=== PATIENT | female | born 1995 | race Caucasian/White ===

== ENCOUNTER 2021-09-13 10:33 | Emergency (ER) | payer BC, SELFPAY ==
[2021-09-13 10:35] VITALS: BP 141/76; PULSE 107; RESP 18; TEMP 36.4; O2SAT 99
[2021-09-13 12:41] VITALS: BP 148/71; PULSE 101; O2SAT 100
--- NOTE | 2021-09-13 14:19 | ED.HA ---
HPI - Headache General Chief Complaint: Headache Stated Complaint: JACOBSON Time Seen by Provider: 09/13/21 13:58 Source: patient Mode of arrival: ambulatory Limitations: no limitations History of Present Illness HPI Narrative: This is a 26 year old female that presents to the ER for migraine headache x 2 days. Reports a pounding headache. Associated with photophobia. Reports she currently has a sinus infection. Does report history of migraines. She has been taking Excedrin Migraine with little relief. Denies fever, vision changes, vomiting, numbness, or weakness. Related Data Allergies Allergy/AdvReac Type Severity Reaction Status Date / Time No Known Allergies Allergy Unverified 10/10/18 17:34 Review of Systems Review of Systems: CONSTITUTIONAL: Denies fever EYES: Denies visual changes GASTROINTESTINAL: Reports nausea. Denies vomiting NEUROLOGIC: Reports headache. Denies numbness, or weakness. All systems reviewed & are unremarkable except as noted in HPI and below PMFSH Past Medical History Medical History (Updated 09/13/21 @ 15:47 by Rae Ahuja PA-C) No active medical problems Social History Social History (Updated 09/13/21 @ 14:21 by Rae Ahuja PA-C) Smoking status: Current every day smoker Exam Narrative: GENERAL: Well-appearing, well-nourished, and in no acute distress. HEAD: Normocephalic, atraumatic. EYES: PERRLA and EOMI. ENT: Turbinates swollen and pale. Mucous membranes moist. Oropharynx without tonsillar hypertrophy exudate or other lesions. Bilateral TMs pearly salgado non-bulging NECK: Supple. No adenopathy or masses. CHEST: Clear to auscultation. No respiratory distress. No wheezes rales or rhonchi HEART: Regular rate and rhythm. No murmur heard. Normal peripheral pulses. EXTREMITIES: Normal range of motion. No edema. SKIN: Warm, dry, no rash. NEURO: No focal deficits. Alert and oriented x3. Cranial nerves II through XII grossly intact PSYCH: Normal mood and affect Course Vital Signs Vital signs: Vital Signs Temperature 97.5 F L 09/13/21 10:35 Pulse Rate 107 H 09/13/21 10:35 Respiratory Rate 18 09/13/21 10:35 Blood Pressure 141/76 H 09/13/21 10:35 Pulse Oximetry 99 09/13/21 10:35 Temperature 97.5 F L 09/13/21 10:35 Pulse Rate 101 H 09/13/21 12:41 Respiratory Rate 18 09/13/21 10:35 Blood Pressure 148/71 H 09/13/21 12:41 Pulse Oximetry 100 09/13/21 12:41 MDM - Headache MDM Narrative Medical decision making narrative: Patient presents the emergency department for migraine headache present over the last couple of days. Does report history of migraines. She is afebrile and nontoxic-appearing. She is neurologically intact. Reports relief with migraine cocktail. Resting in the room comfortably. Patient is stable and felt appropriate for further outpatient evaluation. Instructed to follow-up with her primary doctor. She was given warnings to return to the ER Critical Care Time Critical Care Time Critical Care Time: No Discharge Plan Discharge Clinical Impression: Migraine Qualifiers: Migraine type: unspecified Status migrainosus presence: without status migrainosus Intractability: not intractable Qualified Code(s): G43.909 - Migraine, unspecified, not intractable, without status migrainosus Patient Disposition: Home, Self-Care Condition: Stable Instructions: Migraine Headache (ED) Additional Instructions: Return to the emergency department if you experience fever, stiff neck, vomiting, sudden onset numbness or weakness, or any other symptoms that are concerning to you Rest. Remain well-hydrated. Tylenol or ibuprofen as needed for discomfort Follow-up with primary care doctor Follow-up/Referrals: Spencer Frankel MD [Physician] - 3 Days PHYSICIAN,[employer]OLLER [Primary Care Provider] -
[2021-09-13] MEDS: SODIUM CHLORIDE 0.9% IV 1,000 ML 999 ML IV CONT (14:36)
[2021-09-13] MEDS: diphenhydrAMINE HCl INJ 50 MG/ML VIAL 25 MG IV PUSH (14:38)
[2021-09-13] MEDS: METOCLOPRAMIDE HCL INJ 10 MG/2 ML VIAL IV PUSH (14:39)
== END 2021-09-13 15:59 | disposition home or self-care (01) ==
PROVIDERS: Emergency Provider Emergency Medicine
DX: G43.909 Migraine, unspecified, not intractable, without status migrainosus (principal); F17.200 Nicotine dependence, unspecified, uncomplicated
CPT/HCPCS: 96365; 96375; 99284; J0131; J1200; J2765; J7030

== ENCOUNTER 2021-11-26 09:58 | Emergency (ER) | payer BC, SELFPAY ==
[2021-11-26 10:06] VITALS: BP 146/78; PULSE 91; RESP 16; TEMP 36.2; O2SAT 97
[2021-11-26] MEDS: LACTATED RINGERS 1,000 ML 999 ML IV CONT (11:01)
[2021-11-26 11:09] LABS: Basophils Percent Auto 0.4 % (0.2-1.2); Eosinophils Percent Auto 0.2 % (0-4.4); Hematocrit 36.6 % (37.0-47.0); Hemoglobin 12.5 g/dL (12.0-15.0); Immature Granulocyte Absolute 0.03 K/mm3 (0.00-0.031); Immature Granulocyte Percent A 0.4 % (0-0.5); Lymphocytes Absolute Auto 2.41 K/mm3 (0.9-3.2); Lymphocytes Percent Auto 28.6 % (18.3-44.2); Mean Corpuscular HGB Conc 34.2 g/dl (32-36); Mean Corpuscular Hemoglobin 31.9 pg (26-34); Mean Corpuscular Volume 93.4 fl (80-100); Monocytes Absolute Auto 0.5 K/mm3 (0.1-0.6); Monocytes Percent Auto 6.4 % (2.6-8.5); Neutrophils Absolute Auto 5.4 K/mm3 (1.3-6.7); Platelet Count Result 221 k/mm3 (150-375); Red Blood Count 3.92 M/mm3 (4.2-5.4); Red Cell Distribution Width 12.5 % (11.5-14.5); White Blood Count 8.4 K/mm3 (4.5-10.0)
--- NOTE | 2021-11-26 11:18 | PC.NURSE ---
patient unable to give urine sample at this time, declines straight cath. patient will attempt again later.
[2021-11-26 11:23] LABS: Alanine Aminotransferase 19 U/L (4-35); Albumin Level 4.4 g/dL (3.5-5.1); Alkaline Phosphatase 63 U/L (38-126); Anion Gap 10 mmol/L (8-16); Aspartate Amino Transferase 38 U/L (14-36); Bilirubin,Total 0.9 mg/dL (0.2-1.3); Blood Urea Nitrogen 14 mg/dL (7-17); Carbon Dioxide 23 mmol/L (22-30); Chloride 105 mmol/L (98-107); Estimated CRCL calculation 129 ml/min; Estimated Glomerular Filt Rate > 60; Glucose 95 mg/dL (65-110); Potassium 4.5 mmol/L (3.4-5.0); Sodium 138 mmol/L (137-145)
[2021-11-26 12:53] LABS: Add Urine Microscopic? YES; Appearance Urine Clear (Clear); Bilirubin Urine Negative (Negative); Blood Urine 3+ (Negative); Color Urine Amber (Yellow); Glucose Urine UA Negative (Negative); Ketones Urine 1+ mg/dL (Negative); Leukocyte Esterase Ur Negative LEU/UL (Negative); Mucus Urine Heavy /lpf; Nitrate Urine Negative (Negative); Protein Urine 1+ mg/dL (Negative); RBC Urine >75 /hpf (0-2); Squamous Epithelial Cell Urine Few /hpf (Few)
[2021-11-26 12:54] LABS: Specific Grav Ur 1.031 (1.001-1.035)
--- NOTE | 2021-11-26 13:21 | ED.FEMALEGU ---
HPI - Female Genitourinary General Chief complaint: Vaginal Bleeding <Gem Freedman APRN - Last Filed: 11/26/21 13:59> Stated complaint: vaginal bleeding <Gem Freedman APRN - Last Filed: 11/26/21 13:59> Time Seen by Provider: 11/26/21 10:27 <Gem Freedman APRN - Last Filed: 11/26/21 13:59> Source: patient <Gem Freedman APRN - Last Filed: 11/26/21 13:59> Mode of arrival: ambulatory <Gem Freedman APRN - Last Filed: 11/26/21 13:59> History of Present Illness HPI Narrative: 26 year old female presents today with complaints of vaginal bleeding heavy with dizziness. Patient states she had her normal menses 2 weeks ago. She started bleeding 3 days ago and has noted increased bleeding with clots that started last night. Patient states she is soaking through more than 1 pad an hour. She got concerned when she was dizzy. She has Nexplanon implanted but says it is due to be changed soon. States she is not but does have unprotected sex. <Gem Freedman APRN - Last Filed: 11/26/21 13:59> Sexual activity: Yes (same sexual partner for 6 years. ) and New Sexual Partners <Gem Freedman APRN - Last Filed: 11/26/21 13:59> Patient : No <Gem Freedman APRN - Last Filed: 11/26/21 13:59> Date of Last Menstrual Period: 11/12/21 <Gem Freedman APRN - Last Filed: 11/26/21 13:59> Related Data Allergies/Adverse reactions: Allergies Allergy/AdvReac Type Severity Reaction Status Date / Time No Known Allergies Allergy Verified 11/26/21 10:10 <Gem Freedman APRN - Last Filed: 11/26/21 13:59> Review of Systems Constitutional: Constitutional: Reports no additional constitutional complaints, Denies chills and Denies fatigue <Gem Freedman APRN - Last Filed: 11/26/21 13:59> Eyes: Eyes: Reports no additional eye complaints <Gem Freedman APRN - Last Filed: 02/18/22 13:59> Cardiovascular: Cardiovascular: Reports no additional cardiovascular complaints and Denies chest pain <Gem Freedman MANAGER OF INTERNAL AUDIT - Last Filed: 11/26/21 13:59> Respiratory: Respiratory: Reports no additional respiratory complaints, Denies cough and Denies dyspnea <Gem Freedman MANAGER OF INTERNAL AUDIT - Last Filed: 11/26/21 13:59> Genitourinary: Genitourinary: Reports as per HPI and Reports abnormal vaginal bleeding <Gem Freedman MANAGER OF INTERNAL AUDIT Last Filed: 11/26/21 13:59> Neurologic: Reports system reviewed and no additional complaints, except as documented <Gem Freedman MANAGER OF INTERNAL AUDIT - Last Filed: 11/26/21 13:59> Hematologic/Lymphatic: Hematologic/Lymphatic: Reports no additional hematologic/lymphatic complaints <Gem Freedman MANAGER OF INTERNAL AUDIT - Last Filed: 11/26/21 13:59> PMFSH Past Medical History Medical History: Medical History No active medical problems <Gem Freedman MANAGER OF INTERNAL AUDIT - Last Filed: 11/26/21 13:59> Social History Social History: Social History Smoking status: Current every day smoker <Gem Freedman - Last Filed: 11/26/21 13:59> Exam Narrative: GENERAL: Well-appearing, well-nourished, and in no acute distress. HEAD: Normocephalic, atraumatic. EYES: PERRLA and EOMI. ENT: Nares clear, no rhinorrhea or epistaxis. Mucous membranes moist. Oropharynx without tonsillar hypertrophy exudate or other lesions. Bilateral TMs pearly salgado nonbulging NECK: Supple. No adenopathy or masses. No carotid bruits or JVD CHEST: Clear to auscultation. No respiratory distress. No wheezes rales or rhonchi HEART: Regular rate and rhythm. No murmur heard. Normal peripheral pulses. ABDOMEN: Soft, nontender, nondistended, normal active bowel sounds. EXTREMITIES: Normal range of motion. No edema. SKIN: Warm, dry, no rash. NEURO: No focal deficits. Alert and oriented x3. PSYCH: Normal mood and affect. <Gem Freedman, MANAGER OF INTERNAL AUDIT - Last Filed: 11/26/21 13:59> Eyes: Conjunctivae: conjunctivae norm
[2021-11-26 13:54] VITALS: BP 138/75; PULSE 87; RESP 18; O2SAT 99
== END 2021-11-26 13:55 | disposition home or self-care (01) ==
PROVIDERS: Emergency Provider Nurse Practitioner Family
DX: N93.8 Other specified abnormal uterine and vaginal bleeding (principal); F17.200 Nicotine dependence, unspecified, uncomplicated
CPT/HCPCS: 36415; 80053; 81001; 81025; 85025; 86850; 86900; 86901; 96360; 99284; J7120

== ENCOUNTER 2022-04-12 10:25 | Emergency (ER) | payer BC, SELFPAY ==
--- NOTE | ~2022-04-12 | XR_ITS ---
EXAMINATION: XR hip LT min 2V INDICATION: Left hip pain TECHNIQUE: Two views of the left hip are obtained. COMPARISON: None available FINDINGS: Bone alignment is normal. There is no fracture. The soft tissues are unremarkable. IMPRESSION: 1. Unremarkable left hip radiographs. Reviewed, dictated and finalized at location B.
--- NOTE | 2022-04-12 10:44 | PC.NURSE ---
Radiology taking pt. unable to triage
[2022-04-12 10:58] VITALS: BP 125/67; PULSE 74; RESP 20; TEMP 36.7; O2SAT 99
--- NOTE | 2022-04-12 11:20 | ED.LOWEXIN ---
HPI - Extremity Injury (Lower) General Chief Complaint: Extremity Injury, Lower Stated Complaint: left hip injury Time Seen by Provider: 04/12/22 10:53 History of Present Illness HPI Narrative: 26-year-old female presents emergency room for evaluation of left hip pain. Patient states 3 days ago she was wrestling with her boyfriend. Reports she heard a pop at the time of the injury. The following day she began complaining of left gluteal/hip pain that was worse with ambulation and when she brought her knee up to her chest. Patient has been taking Tylenol and ibuprofen with no relief of symptoms. Related Data Allergies Allergy/AdvReac Type Severity Reaction Status Date / Time No Known Allergies Allergy Verified 11/26/21 10:10 Review of Systems Review of Systems: CONSTITUTIONAL: Denies fever, chills, or sweats. EYES: Denies visual changes, redness, or discharge. ENT: Denies rhinorrhea, congestion, sore throat, or otalgia. CARDIOVASCULAR: Denies chest pain, palpitations, or edema. RESPIRATORY: Denies cough or dyspnea. GASTROINTESTINAL: Denies abdominal pain, nausea, vomiting, or diarrhea. GENITOURINARY: Denies dysuria or hematuria. SKIN: Denies rash or itching. MUSCULOSKELETAL: Reports left hip/gluteal pain NEUROLOGIC: Denies headache, numbness, dizziness, or weakness. PSYCHIATRIC: Denies anxiety or depression. PMFSH Past Medical History Medical History No active medical problems Social History Social History Smoking status: Current every day smoker Exam Narrative: GENERAL: Well-appearing, well-nourished, no physical limitations, and in no acute distress. HEAD: Normocephalic, atraumatic. EYES: Conjunctivae normal, PERRLA and EOMI. CHEST: Clear to auscultation. No respiratory distress. No wheezes rales or rhonchi. No tenderness. HEART: Regular rate and rhythm. No murmur heard. Normal peripheral pulses. BACK: No CVA tenderness; No midline cervical/thoracic/lumbar tenderness, step-offs, bony abnormality; FROM EXTREMITIES: Normal range of motion. No edema. No clubbing or cyanosis, tenderness to the left gluteal muscle SKIN: Warm, dry, no rash. No noted wounds NEURO: No focal deficits. Alert and oriented x3. MAEW. CN's II-XI intact bilaterally, normal gait PSYCH: Cooperative. Normal mood and affect. Course Vital Signs Vital signs: Vital Signs Temperature 36.7 C 04/12/22 10:58 Pulse Rate 74 04/12/22 10:58 Respiratory Rate 20 04/12/22 10:58 Blood Pressure 125/67 04/12/22 10:58 Pulse Oximetry 99 04/12/22 10:58 Oxygen Delivery Room Air 04/12/22 10:58 Temperature 36.7 C 04/12/22 10:58 Pulse Rate 74 04/12/22 10:58 Respiratory Rate 20 04/12/22 10:58 Blood Pressure 125/67 04/12/22 10:58 Pulse Oximetry 99 04/12/22 10:58 Oxygen Delivery Room Air 04/12/22 10:58 MDM - Extremity Injury (Lower) Lab Data Labs: UCG Bedside Result Negative Reference Range: Negative Imaging Data Radiologist's impression: Impressions Hip X-Ray 04/12/22 10:55 IMPRESSION: 1. Unremarkable left hip radiographs. Discharge Plan Discharge Clinical Impression: Contusion of hip, left Patient Disposition: Home, Self-Care Condition: Stable Instructions: Antibiotic Form Prescriptions: New naproxen 500 mg tablet 500 mg PO BID Qty: 20 0RF No Action ibuprofen 600 mg tablet 600 mg PO Q6H PRN (Reason: pain) Qty: 30 0RF Follow-up/Referrals: PHYSICIAN,G[employer] SUPERVISOR [Primary Care Provider] - Stand Alone Forms: Work/School Release IP Time of Disposition: 11:23
== END 2022-04-12 11:36 | disposition home or self-care (01) ==
PROVIDERS: Emergency Provider Nurse Practitioner Family
DX: S70.02XA Contusion of left hip, initial encounter (principal); F17.200 Nicotine dependence, unspecified, uncomplicated; X50.9XXA Other and unspecified overexertion or strenuous movements or postures, initial encounter; Y93.83 Activity, rough housing and horseplay
CPT/HCPCS: 73502; 81025; 99283

== ENCOUNTER 2022-09-06 12:47 | Emergency (ER) | payer BC, SELFPAY ==
--- NOTE | 2022-09-06 12:57 | PC.NURSE ---
Walk out before triage at 1251
== END 2022-09-06 12:51 | disposition left against medical advice (07) ==
DX: Z53.21 Procedure and treatment not carried out due to patient leaving prior to being seen by health care provider (principal)
CPT/HCPCS: 99199

== ENCOUNTER 2023-02-25 18:53 | Emergency (ER) | payer OTHER, BC, SELFPAY ==
[2023-02-25 19:10] VITALS: BP 136/86; PULSE 84; RESP 18; TEMP 36.7; O2SAT 99
--- NOTE | 2023-02-25 20:47 | ED.BACK ---
HPI - Back Pain/Injury General Chief Complaint: Back Pain/Injury Stated Complaint: lower and mid back pain Time Seen by Provider: 02/25/23 19:58 Source: patient Mode of arrival: ambulatory Limitations: no limitations History of Present Illness HPI Narrative: This is a 27-year-old female presents to the ED with chief complaint of acute on chronic low back pain x1 day. States she has had back pain for about a year. She has history of herniated disc. Patient states that she is having severely worse pain today. She states it is worse in the right lower back. She states it is causing her trouble with walking. She has also had paresthesias to the bilateral lower legs, worse on the right foot. Reports shocklike pains that radiate. Patient states that earlier today she had an episode of incontinence. She was unaware that she had to urinate. Denies any bowel incontinence. Denies saddle anesthesia. Denies foot drop. Denies fevers, chills or any further site of pain. Related Data Allergies Allergy/AdvReac Type Severity Reaction Status Date / Time gabapentin Allergy Rash Verified 02/25/23 18:55 Review of Systems Review of Systems: CONSTITUTIONAL: Denies fever, chills, or sweats. EYES: Denies visual changes, redness, or discharge. ENT: Denies rhinorrhea, congestion, sore throat, or otalgia. CARDIOVASCULAR: Denies chest pain, palpitations, or edema. RESPIRATORY: Denies cough or dyspnea. GASTROINTESTINAL: Denies abdominal pain, nausea, vomiting, or diarrhea. GENITOURINARY: See HPI SKIN: Denies rash or itching. MUSCULOSKELETAL: See HPI NEUROLOGIC: Denies headache, numbness, dizziness, or weakness. PSYCHIATRIC: Denies anxiety or depression. [facility] Past Medical History Medical History No active medical problems Social History Social History Smoking status: Current every day smoker Exam Narrative: GENERAL: Well-appearing, well-nourished, and in no acute distress. HEAD: Normocephalic, atraumatic. EYES: PERRLA and EOMI. ENT: Nares clear, no rhinorrhea or epistaxis. Mucous membranes moist. Oropharynx without tonsillar hypertrophy exudate or other lesions. NECK: Supple. No adenopathy or masses. CHEST: No respiratory distress. Clear to auscultation. No wheezes rales or rhonchi HEART: Regular rate and rhythm. No murmur heard. Normal peripheral pulses. ABDOMEN: Soft, nontender, nondistended, normal active bowel sounds. MSK: Straight leg raise positive on the right. Equivocal on the left. Right paraspinal lumbar tenderness present. Right SI tenderness present. She is ambulatory. No midline pain. Normal range of motion. No edema. SKIN: Warm, dry, no rash. NEURO: Alert and oriented x3. Reports sensory deficit on the right foot. No saddle anesthesia present. 5 out of 5 strength with plantarflexion, dorsiflexion, EHL strength bilaterally. Patellar reflexes 2+ bilaterally. PSYCH: Normal mood and affect. Rectal exam performed with female RN urban renewal manager present: Good anal tone. Anal present Course Course Emergency Course: Pt is able to ambulate to the restroom and back without difficulty. No foot drop observed. She states that she was able to urinate without difficulty. Reevaluation 2256: Feeling much better and wants to go home Vital Signs Vital signs: Vital Signs Temperature 98.0 F 02/25/23 19:10 Pulse Rate 84 02/25/23 19:10 Respiratory Rate 18 02/25/23 19:10 Blood Pressure 136/86 02/25/23 19:10 Pulse Oximetry 99 02/25/23 19:10 Oxygen Delivery Room Air 02/25/23 19:10 Temperature 98.0 F 02/25/23 19:10 Pulse Rate 84 02/25/23 19:10 Respiratory Rate 18 02/25/23 19:10 Blood Pressure 136/86 02/25/23 19:10 Pulse Oximetry 99 02/25/23 19:10 Oxygen Delivery Room Air 02/25/23 19:10 MDM - Back Pain/Injury MDM Narrative Medical decision making narrative:
[2023-02-25] MEDS: MORPHINE SULFATE (*CRX) 4 MG/ML INJ IV PUSH (21:42)
[2023-02-25 21:43] LABS: Appearance Urine Cloudy (Clear); Bacteria Urine None Seen /hpf; Bilirubin Urine Negative (Negative); Blood Urine Negative (Negative); Color Urine Yellow (Yellow); Glucose Urine UA Trace mg/dL (Negative); Ketones Urine Trace mg/dL (Negative); Leukocyte Esterase Ur Negative LEU/UL (Negative); Nitrate Urine Negative (Negative); Non Pathogenic Casts 0-2; Protein Urine Negative (Negative); RBC Urine 0-2 /hpf (0-2); Specific Grav Ur 1.032 (1.001-1.035); Squamous Epithelial Cell Urine Occasional /hpf (Few); Urobilinogen Urine 0.2 mg/dL (<2.0); WBC Urine 0-5 /hpf
[2023-02-25 21:48] LABS: Add Urine Microscopic? YES
== END 2023-02-25 23:32 | disposition home or self-care (01) ==
PROVIDERS: Emergency Provider Physician Assistant
DX: M54.16 Radiculopathy, lumbar region (principal); F17.200 Nicotine dependence, unspecified, uncomplicated
CPT/HCPCS: 81001; 96374; 99284; J2270

== ENCOUNTER 2023-03-19 10:45 | Emergency (ER) | payer OTHER, BC, SELFPAY ==
[2023-03-19 10:49] VITALS: BP 153/64; PULSE 90; RESP 16; TEMP 36.5; O2SAT 100
[2023-03-19] MEDS: KETOROLAC (*BKC) 60 MG/2 ML VIAL IM (11:30)
[2023-03-19] MEDS: CYCLOBENZAPRINE HCL 10 MG TABLET PO (11:30)
--- NOTE | 2023-03-19 12:31 | ED.BACK ---
HPI - Back Pain/Injury General Chief Complaint: Back Pain/Injury Stated Complaint: back pain/leg pain Time Seen by Provider: 03/19/23 11:06 History of Present Illness HPI Narrative: Patient is a 27-year-old female who presents ER with back pain. Patient reports she has history of low back pain that is been ongoing for the last year. She has been to [facility] and had multiple x-rays and MRI. Last MRI was August 2022. She reports she has several bulging disc and also has a lot of degenerative changes to her spine. She is referred to neurosurgery but does not want to have surgery so she is trying to see an orthopedic surgeon. She has no fevers or chills or sweats. 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 She has no new traumatic injury. Reports that pain has been referring to her legs and groin mainly on the right side somewhat on the left. No saddle anesthesia. No difficulty with urination/defecation. Related Data Allergies Allergy/AdvReac Type Severity Reaction Status Date / Time gabapentin Allergy Rash Verified 02/25/23 18:55 Review of Systems Review of Systems: All systems reviewed & are unremarkable except as noted in HPI and below Constitutional: Constitutional: Denies chills and Denies fever(s) Musculoskeletal: Musculoskeletal: Reports back pain, Denies arthralgias and Denies joint swelling Integumentary/Breasts: Skin/Breast: Denies erythema, Denies rash and Denies skin ulcer Neurologic: Denies headache(s), Denies focal weakness and Denies numbness PMFSH Past Medical History Medical History (Updated 03/19/23 @ 12:37 by August Irving MD) No active medical problems Surgical History Surgical History (Updated 03/19/23 @ 12:33 by August Irving MD) No pertinent past surgical history Social History Social History Smoking status: Current every day smoker Exam Narrative: GENERAL: Well-appearing, well-nourished, and in no acute distress. HEAD: Normocephalic, atraumatic. ENT: Mucous membranes moist. CHEST: Clear to auscultation. No respiratory distress. HEART: Regular rate and rhythm. Normal peripheral pulses. Back: No midline tenderness to the T/L-spine there is tenderness to the paraspinal musculature in the SI region bilaterally while forward down into the buttock. EXTREMITIES: Normal range of motion. No edema. NEURO: Alert and oriented x3. PSYCH: Normal mood and affect. Course Course Emergency Course: Patient in bed sleeping and feels improved with Toradol and Flexeril. She does report overall weakness related to the Flexeril and does not wish to have that prescribed for home. She does report success with treating her pain when using steroids at home and so she will be prescribed a Medrol Dosepak. Vital Signs Vital signs: Vital Signs Temperature 97.7 F 03/19/23 10:49 Pulse Rate 90 03/19/23 10:49 Respiratory Rate 16 03/19/23 10:49 Blood Pressure 153/64 H 03/19/23 10:49 Pulse Oximetry 100 03/19/23 10:49 Oxygen Delivery Room Air 03/19/23 10:49 Temperature 97.7 F 03/19/23 10:49 Pulse Rate 90 03/19/23 10:49 Respiratory Rate 16 03/19/23 10:49 Blood Pressure 153/64 H 03/19/23 10:49 Pulse Oximetry 100 03/19/23 10:49 Oxygen Delivery Room Air 03/19/23 10:49 Discharge Plan Discharge Clinical Impression: Sciatica Patient Disposition: Home, Self-Care Condition: Stable Instructions: Sciatica (ED) Additional Instructions: Return to the ER if you have increased pain in your back, you develop lower extremity weakness/numbness/paralysis, you have numbness or tingling in your private parts, or you are unable to control your ability to urinate/stool. Prescriptions: New methylprednisolone [Medrol (Devaughn)] 4 mg tablets,dose pack See Rx Instructions .ROUTE .COMPLEX Qty: 21 0RF Rx Instructions: orally per package directions No Action ibuprofen 600 mg tablet
== END 2023-03-19 12:48 | disposition home or self-care (01) ==
PROVIDERS: Emergency Provider Emergency Medicine
DX: M54.42 Lumbago with sciatica, left side (principal); M54.41 Lumbago with sciatica, right side; F17.200 Nicotine dependence, unspecified, uncomplicated
CPT/HCPCS: 96372; 99283; A9270; J1885

== ENCOUNTER 2023-03-23 12:18 | Outpatient (CLI) | payer OTHER, SELFPAY ==
--- NOTE | ~2023-03-23 | XR_ITS ---
XR lumbar spine 2-3V 03/23/2023 12:48 Indication: Low back pain Procedure: 3 views lumbar spine Comparison: No prior studies for comparison. Findings: Vertebral body heights are maintained. No fracture, subluxation or dislocation. There is mi ld degenerative spondylosis of the lower thoracic spine. There is mild degenerative disc disease at T 12-L1 and L1-2. No evidence for spondylolisthesis. Pedicles are intact. Normal alignment. There is a n IUD in the pelvis. Impression: 1: Mild lumbar spondylosis. Reviewed, dictated and finalized at location [] Impression: 1: Mild lumbar spondylosis.
[2023-03-23 13:29] LABS: Hematocrit 40.1 % (37.0-47.0); Hemoglobin 13.4 g/dL (12.0-15.0); Mean Corpuscular HGB Conc 33.4 g/dl (32-36); Mean Corpuscular Hemoglobin 31.2 pg (26-34); Mean Corpuscular Volume 93.5 fl (80-100); Mean Platelet Volume 10.1 fl (7.4-10.4); Platelet Count Result 242 k/mm3 (150-375); Red Blood Count 4.29 M/mm3 (4.2-5.4); Red Cell Distribution Width 11.9 % (11.5-14.5)
[2023-03-23 13:38] LABS: Appearance Urine Clear (Clear); Bacteria Urine None Seen /hpf; Bilirubin Urine Negative (Negative); Blood Urine Negative (Negative); Color Urine Yellow (Yellow); Glucose Urine UA Negative (Negative); Ketones Urine Negative (Negative); Leukocyte Esterase Ur Trace LEU/UL (NEGATIVE); Nitrate Urine Negative (Negative); Non Pathogenic Casts 0-2; Protein Urine Negative (Negative); RBC Urine 0-2 /hpf (0-2); Specific Grav Ur 1.013 (1.001-1.035); Squamous Epithelial Cell Urine Occasional /hpf (Few); Urobilinogen Urine 0.2 mg/dL (<2.0); WBC Urine 0-5 /hpf (0-3); pH Urine 7.5 (5.0-9.0)
[2023-03-23 13:42] LABS: Alanine Aminotransferase 21 U/L (6-35); Albumin Level 4.6 g/dL (3.5-5.1); Alkaline Phosphatase 65 U/L (38-126); Anion Gap 5 mmol/L (8-16); Aspartate Amino Transferase 22 U/L (14-36); Bilirubin,Total 0.5 mg/dL (0.2-1.3); Blood Urea Nitrogen 12 mg/dL (7-17); Carbon Dioxide 28 mmol/L (22-30); Chloride 105 mmol/L (98-107); Estimated Glomerular Filt Rate > 60; Glucose 90 mg/dL (65-110); Potassium 3.9 mmol/L (3.4-5.0); Sodium 138 mmol/L (137-145)
[2023-03-23 13:46] LABS: Add Urine Microscopic? YES
[2023-03-23 14:35] LABS: Erythrocyte Sedimentation Rate 25 mm/hr (0-20)
[2023-03-23 23:56] LABS: Rheumatoid Factor < 12.0 IU/ML (<12)
== END 2023-03-23 12:19 | disposition home or self-care (01) ==
PROVIDERS: PCP Emergency Medicine; Visit Provider Emergency Medicine
DX: Z00.00 Encounter for general adult medical examination without abnormal findings (principal); F41.9 Anxiety disorder, unspecified; E32.9 Disease of thymus, unspecified; M47.896 Other spondylosis, lumbar region
CPT/HCPCS: 36415; 72100; 80053; 81001; 85027; 85652; 86038; 86430

== ENCOUNTER 2023-04-18 13:28 | Outpatient (CLI) | payer OTHER, SELFPAY ==
[2023-04-18 14:34] LABS: Cholesterol 153 mg/dL (0-200); HDL Direct 41 mg/dL; Triglycerides 72 mg/dL (<150)
[2023-04-18 14:37] LABS: Creatinine Urine 328.2 mg/dL
[2023-04-18 14:44] LABS: Appearance Urine Turbid (Clear); Bacteria Urine 3+ /hpf; Bilirubin Urine Negative (Negative); Blood Urine 2+ (Negative); Color Urine Dark Yellow (Yellow); Glucose Urine UA Negative (Negative); Ketones Urine Negative (Negative); Leukocyte Esterase Ur 2+ LEU/UL (NEGATIVE); Mucus Urine Present /lpf; Nitrate Urine Negative (Negative); Non Pathogenic Casts 0-2; Protein Urine 2+ mg/dL (Negative); Specific Grav Ur 1.025 (1.001-1.035); Squamous Epithelial Cell Urine Many /hpf (Few); WBC Urine 51-100 /hpf (0-3)
[2023-04-18 14:45] LABS: LDL Cholesterol Direct 80 mg/dL
[2023-04-18 14:46] LABS: Beta HCG Quantitative < 2.39 mIU/ML
[2023-04-18 14:58] LABS: Add Urine Microscopic? YES
[2023-04-18 15:14] LABS: MALB Creatinine Ratio 89.9 mg/g (0-30)
[2023-04-18 15:22] LABS: Free T4 Free Thyroxine 0.97 ng/mL (0.78-2.19); Hemoglobin A1C 4.9 % (<5.7)
== END 2023-04-18 13:29 | disposition home or self-care (01) ==
PROVIDERS: PCP Emergency Medicine; Visit Provider Emergency Medicine
DX: M41.9 Scoliosis, unspecified (principal); M54.50 Low back pain, unspecified; F32.9 Major depressive disorder, single episode, unspecified; M51.36 Other intervertebral disc degeneration, lumbar region; E66.9 Obesity, unspecified
CPT/HCPCS: 36415; 80061; 81001; 82043; 83036; 84439; 84443; 84702; 87086; 87088

== ENCOUNTER 2024-03-20 12:39 | Emergency (ER) | payer OTHER, SELFPAY ==
[2024-03-20 12:41] VITALS: BP 114/78; PULSE 101; RESP 22; TEMP 36.6; O2SAT 98
--- NOTE | 2024-03-20 13:02 | ED.BACK ---
HPI - Back Pain/Injury General Chief Complaint: Back Pain/Injury Stated Complaint: lower back pain Time Seen by Provider: 03/20/24 12:51 Related Data Allergies Allergy/AdvReac Type Severity Reaction Status Date / Time gabapentin Allergy Rash Verified 03/20/24 12:40 [facility] Past Medical History Medical History (Updated 03/20/23 @ 00:00 by Gris Mcbride) No active medical problems Surgical History Surgical History (Updated 03/19/23 @ 12:33 by August Irving MD) No pertinent past surgical history Social History Social History Smoking status: Current every day smoker Course Course Emergency Course: Chart review performed. Patient here with lower back pain x4 days. History of degenerative disk disease per nursing note. Triage vitals show tachycardia, otherwise grossly normal. Multiple prior visits for lumbar back pain in the past in our system. Vital Signs Vital signs: Vital Signs Temperature 97.8 F 03/20/24 12:41 Pulse Rate 101 H 03/20/24 12:41 Respiratory Rate 22 H 03/20/24 12:41 Blood Pressure 114/78 03/20/24 12:41 Pulse Oximetry 98 03/20/24 12:41 Oxygen Delivery Room Air 03/20/24 12:41 Temperature 97.8 F 03/20/24 12:41 Pulse Rate 101 H 03/20/24 12:41 Respiratory Rate 22 H 03/20/24 12:41 Blood Pressure 114/78 03/20/24 12:41 Pulse Oximetry 98 03/20/24 12:41 Oxygen Delivery Room Air 03/20/24 12:41 Discharge Plan Discharge Prescriptions: No Action ibuprofen 600 mg tablet 600 mg PO Q6H PRN (Reason: pain) Qty: 30 0RF naproxen 500 mg tablet 500 mg PO BID Qty: 20 0RF methylprednisolone [Medrol (Devaughn)] 4 mg tablets,dose pack See Rx Instructions .ROUTE .COMPLEX Qty: 21 0RF Rx Instructions: orally per package directions Follow-up/Referrals: Damion Begum MD [Primary Care Provider] -
[2024-03-20] MEDS: CYCLOBENZAPRINE HCL 10 MG TABLET PO (13:48)
[2024-03-20] MEDS: KETOROLAC (*BKC) 60 MG/2 ML VIAL IM (13:48)
--- NOTE | 2024-03-20 14:25 | ED.GENADULT ---
HPI - General Adult General Chief complaint: Back Pain/Injury Stated complaint: lower back pain Time Seen by Provider: 03/20/24 12:51 History of Present Illness HPI narrative: Patient is a 28-year-old female who presents ER with low back pain. Worsening over last couple days. Has history of degenerative disc disease and sees an orthopedic spine physician. She used to get steroid injections. Symptoms worsened after swimming in a [place]. No other known trauma. Radiates down her right leg. No saddle anesthesia. No difficulty with urination / defecation. Related Data Allergies Allergy/AdvReac Type Severity Reaction Status Date / Time gabapentin Allergy Rash Verified 03/20/24 12:40 Review of Systems Constitutional: Constitutional: Reports no additional constitutional complaints Cardiovascular: Cardiovascular: Reports no additional cardiovascular complaints Respiratory: Respiratory: Reports no additional respiratory complaints Musculoskeletal: Musculoskeletal: Reports back pain, Denies arthralgias, Denies joint swelling and Denies muscle cramps Neurologic: Reports system reviewed and no additional complaints, except as documented PMFSH Past Medical History Medical History (Updated 03/20/24 @ 14:45 by August Irving MD) Degenerative disc disease No active medical problems Surgical History Surgical History (Updated 03/19/23 @ 12:33 by August Irving MD) No pertinent past surgical history Social History Social History Smoking status: Current every day smoker Exam Narrative: GENERAL: Well-appearing, well-nourished, and in no acute distress. HEAD: Normocephalic, atraumatic. ENT: Mucous membranes moist. BACK: NO midline tenderness of the T/L-spine. Mild right SI region tenderness. EXTREMITIES: Normal range of motion. No edema. SKIN: Warm, dry, no rash. NEURO: Alert and oriented x3. PSYCH: Normal mood and affect. Course Course Emergency Course: patient resting comfortably. Discussed diagnosis and treatment plan. Patient verbalized understanding. Discharge home. Patient has follow-up with her doctor on 04/09/2024. Vital Signs Vital signs: Vital Signs Temperature 97.8 F 03/20/24 12:41 Pulse Rate 101 H 03/20/24 12:41 Respiratory Rate 22 H 03/20/24 12:41 Blood Pressure 114/78 03/20/24 12:41 Pulse Oximetry 98 03/20/24 12:41 Oxygen Delivery Room Air 03/20/24 12:41 Temperature 97.8 F 03/20/24 12:41 Pulse Rate 101 H 03/20/24 12:41 Respiratory Rate 22 H 03/20/24 12:41 Blood Pressure 114/78 03/20/24 12:41 Pulse Oximetry 98 03/20/24 12:41 Oxygen Delivery Room Air 03/20/24 12:41 Medical Decision Making Vital Signs Vital Signs: Vital Signs Temperature 97.8 F 03/20/24 12:41 Pulse Rate 101 H 03/20/24 12:41 Respiratory Rate 22 H 03/20/24 12:41 Blood Pressure 114/78 03/20/24 12:41 Pulse Oximetry 98 03/20/24 12:41 Oxygen Delivery Room Air 03/20/24 12:41 Temperature 97.8 F 03/20/24 12:41 Pulse Rate 101 H 03/20/24 12:41 Respiratory Rate 22 H 03/20/24 12:41 Blood Pressure 114/78 03/20/24 12:41 Pulse Oximetry 98 03/20/24 12:41 Oxygen Delivery Room Air 03/20/24 12:41 Discharge Plan Discharge Clinical Impression: Acute exacerbation of chronic low back pain Patient Disposition: Home, Self-Care Condition: Stable Instructions: Acute Low Back Pain (ED) Additional Instructions: Please return to the emergency department if you develop severe pain that is not controlled by pain medications or if you are unable to walk because of pain or weakness. Return to the emergency department immediately if you develop fevers, loss of bowel or bladder control (dribbling of urine or having accidents you wouldn't normally have), inability to urinate, numbness of your genital or anal area, or weakness/numbness of your legs or arms as these could all be signs
[2024-03-20 14:33] VITALS: BP 132/74; PULSE 76; RESP 18; TEMP 36.7; O2SAT 100
== END 2024-03-20 14:36 | disposition home or self-care (01) ==
PROVIDERS: Emergency Provider Emergency Medicine; PCP Emergency Medicine
DX: M54.50 Low back pain, unspecified (principal); G89.29 Other chronic pain; F17.200 Nicotine dependence, unspecified, uncomplicated
CPT/HCPCS: 96372; 99283; A9270; J1885

== ENCOUNTER 2024-03-25 12:15 | Emergency (ER) | payer OTHER, SELFPAY ==
--- NOTE | ~2024-03-25 | CT_ITS ---
CT brain wo con Ordering provider: Alyce Rocha PA-C History: 28 years Female with . syncope, loja, dizziness . Comparison: None. Technique: CT of the head without contrast. Radiation reduction technique utilized. DLP is 605.33 mGy . FINDINGS: BRAIN PARENCHYMA AND CSF SPACES: No midline shift, mass effect or hemorrhage. The brain parenchyma a nd CSF spaces are otherwise normal. VISUALIZED PARANASAL SINUSES: Well aerated. MASTOIDS: Well aerated. BONES: The bones appear intact. SOFT TISSUES: Visualized nasopharynx is normal. Superficial soft tissues are normal. IMPRESSION: No acute intracranial findings. Reviewed, dictated and finalized at location A.
[2024-03-25 12:26] VITALS: BP 125/63; PULSE 82; RESP 16; TEMP 36.6; O2SAT 100
--- NOTE | 2024-03-25 13:19 | ECG_ITS ---
Test Date: 2024-03-25 13:42:59 Measurements Intervals Four [place] Rate: 71 P: 51 WI: 140 QRS: 22 QRSD: 98 T: 19 QT: 375 QTc: 408 Interpretive Statements SINUS RHYTHM NORMAL ELECTROCARDIOGRAM No previous ECG available for comparison Electronically Signed On 03-25-2024 15:33:14 CDT by Pawan Ramires M.D.
--- NOTE | 2024-03-25 13:27 | ED.DIZZY ---
HPI - Dizziness General Chief Complaint: Dizziness Stated Complaint: weakness, tingling, near syncopal episode, JACOBSON Time Seen by Provider: 03/25/24 13:19 Source: patient Mode of arrival: EMS Limitations: no limitations History of Present Illness HPI Narrative: patient is a 28-year-old female who presents to the ED via EMS with c/o dizziness, near syncopal episode. Patient works at [employer] in the [employer]. She reports it was very hot today. She began feeling dizzy and lightheaded around 10am and texted her fiance saying so. She went to lunch and states that is the last thing she remembers. She then remembers being in the ambulance. Was told by her work staff she was incoherent for several minutes. Unclear if she fully lost consciousness. EMS was then called. There was no report of seizure like activity. Patient denies hx of seizure. Patient states she feels improved currently. Has a headache and reports mild nausea. Denies vomiting, abdominal pain, focal weakness or numbness, chest pain, shortness breath. Also reports chronic lower back pain related to degenerative disc disease. Related Data Allergies Allergy/AdvReac Type Severity Reaction Status Date / Time gabapentin Allergy Rash Verified 03/20/24 12:40 Review of Systems Review of Systems: CONSTITUTIONAL: Denies fever, chills, or sweats. ENT: Denies vision changes CARDIOVASCULAR: Denies chest pain. RESPIRATORY: Denies dyspnea. GASTROINTESTINAL: See HPI. GENITOURINARY: Denies dysuria or hematuria. MUSCULOSKELETAL: See HPI. NEUROLOGIC: See HPI. All systems reviewed & are unremarkable except as noted in HPI and below PMFSH Past Medical History Medical History Degenerative disc disease No active medical problems Surgical History Surgical History No pertinent past surgical history Social History Social History Smoking status: Current every day smoker Exam Narrative: GENERAL: Well appearing, morbidly obese with BMI of 49.9, non-toxic, in no acute distress. HEAD: Normocephalic, atraumatic. EYES: PERRL/EOMI, conjunctivae clear bilaterally. No nystagmus. NECK: Supple. No meningeal signs. RESPIRATORY: Airway patent, respirations nonlabored. Clear to auscultation bilaterally, no rales, rhonchi, wheezing. CARDIOVASCULAR: Regular rate and rhythm without murmurs, rubs, or gallops. Peripheral pulses 2+ and equal bilaterally. ABDOMINAL: Soft, nontender, nondistended. Normoactive BS. MUSCULOSKELETAL: Moves all extremities. No gross deformities. SKIN: Warm, dry, normal color. No rashes. NEURO: A&O X3. Speech clear. Follows commands. CN II-XII intact. Sensation grossly intact. Steady gait. No ataxic movements. Strength 5/5 in upper and lower extremities bilaterally. 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 PSYCHIATRIC: Appropriate mood and affect. Normal interaction. Course Vital Signs Vital signs: Vital Signs Temperature 97.8 F 03/25/24 12:26 Pulse Rate 82 03/25/24 12:26 Respiratory Rate 16 03/25/24 12:26 Blood Pressure 125/63 03/25/24 12:26 Pulse Oximetry 100 03/25/24 12:26 Oxygen Delivery Room Air 03/25/24 12:26 Temperature 97.8 F 03/25/24 12:26 Pulse Rate 71 03/25/24 16:10 Respiratory Rate 13 03/25/24 16:10 Blood Pressure 121/78 03/25/24 16:10 Pulse Oximetry 100 03/25/24 16:10 Oxygen Delivery Room Air 03/25/24 12:26 MDM - Dizziness MDM Narrative Medical decision making narrative: Patient presented to ED from work with dizziness, lightheadedness, near syncopal episode. Unclear if patient fully lost consciousness. Vital signs are stable upon arrival. Patient neurologically intact. No focal deficits appreciated. Orthostatic vital signs were evaluated and negative. Fluids initiated. Patient did report feeling
[2024-03-25 13:30] VITALS: BP 125/62; PULSE 73; RESP 19; O2SAT 100
[2024-03-25 13:43] VITALS: BP 112/59; PULSE 71
[2024-03-25 13:44] VITALS: BP 121/73; PULSE 74
[2024-03-25 13:45] VITALS: BP 124/76; PULSE 73; RESP 16; O2SAT 99
[2024-03-25] MEDS: ONDANSETRON INJ 4 MG/2 ML VIAL IV PUSH (14:12)
[2024-03-25] MEDS: SODIUM CHLORIDE 0.9% IV 1,000 ML 999 ML IV CONT (14:12)
[2024-03-25 14:14] LABS: Basophils Percent Auto 0.5 % (0.2-1.2); Eosinophils Percent Auto 0.3 % (0-4.4); Hematocrit 36.7 % (37.0-47.0); Hemoglobin 12.3 g/dL (12.0-15.0); Immature Granulocyte Absolute 0.03 K/mm3 (0.00-0.031); Immature Granulocyte Percent A 0.3 % (0-0.5); Lymphocytes Absolute Auto 2.25 K/mm3 (0.9-3.2); Lymphocytes Percent Auto 26.2 % (18.3-44.2); Mean Corpuscular HGB Conc 33.5 g/dl (32-36); Mean Corpuscular Hemoglobin 31.5 pg (26-34); Mean Corpuscular Volume 93.9 fl (80-100); Mean Platelet Volume 10.6 fl (7.4-10.4); Monocytes Absolute Auto 0.6 K/mm3 (0.1-0.6); Monocytes Percent Auto 6.9 % (2.6-8.5); Neutrophils Absolute Auto 5.7 K/mm3 (1.3-6.7); Neutrophils Percent Auto 65.8 % (45.5-73.1); Platelet Count Result 227 k/mm3 (150-375); Red Blood Count 3.91 M/mm3 (4.2-5.4); Red Cell Distribution Width 11.9 % (11.5-14.5); White Blood Count 8.6 K/mm3 (4.5-10.0)
[2024-03-25 14:25] LABS: Alanine Aminotransferase 15 U/L (6-35); Albumin Level 4.2 g/dL (3.5-5.1); Alkaline Phosphatase 80 U/L (38-126); Anion Gap 8 mmol/L (4-12); Aspartate Amino Transferase 22 U/L (14-36); Bilirubin,Total 0.3 mg/dL (0.2-1.3); Blood Urea Nitrogen 20 mg/dL (7-17); Calcium 8.8 mg/dL (8.4-10.2); Carbon Dioxide 25 mmol/L (22-30); Chloride 108 mmol/L (98-107); Estimated CRCL calculation 122 ml/min; Estimated Glomerular Filt Rate > 60; Glucose 99 mg/dL (65-110); Magnesium 2.1 mg/dL (1.6-2.3); Potassium 3.6 mmol/L (3.4-5.0); Sodium 141 mmol/L (137-145)
[2024-03-25 14:26] LABS: Appearance Urine Cloudy (Clear); Bacteria Urine 1+ /hpf; Bilirubin Urine Negative (Negative); Blood Urine Negative (Negative); Color Urine Yellow (Yellow); Glucose Urine UA Negative (Negative); Ketones Urine Trace mg/dL (Negative); Leukocyte Esterase Ur 1+ LEU/UL (Negative); Nitrate Urine Negative (Negative); Non Pathogenic Casts 0-2; Protein Urine Negative (Negative); RBC Urine 0-2 /hpf (0-2); Squamous Epithelial Cell Urine Moderate /hpf (Few); pH Urine 5.5 (5.0-9.0)
[2024-03-25 14:37] LABS: Add Urine Microscopic? YES
[2024-03-25 14:51] LABS: Creatine Kinase 112 U/L (30-135)
[2024-03-25] MEDS: ACETAMINOPHEN 500 MG TABLET 1000 MG PO (14:56)
[2024-03-25] MEDS: KETOROLAC 30 MG/ML VIAL (*BKC) IV PUSH (14:56)
[2024-03-25] MEDS: SODIUM CHLORIDE 0.9% IV 500 ML 999 ML IV CONT (15:25)
[2024-03-25 16:10] VITALS: BP 121/78; PULSE 71; RESP 13; O2SAT 100
== END 2024-03-25 16:21 | disposition home or self-care (01) ==
PROVIDERS: Emergency Provider Physician Assistant; PCP Emergency Medicine
DX: R55 Syncope and collapse (principal); R42 Dizziness and giddiness; R82.998 Other abnormal findings in urine; F17.210 Nicotine dependence, cigarettes, uncomplicated
CPT/HCPCS: 36415; 70450; 80053; 81001; 81025; 82550; 83735; 85025; 87086; 87088; 93005; 96361; 96374; 96375; 99284; A9270; J1885; J2405; J7030; J7040

== ENCOUNTER 2024-05-02 17:20 | Emergency (ER) | payer OTHER, SELFPAY ==
--- NOTE | ~2024-05-02 | CT_ITS ---
EXAMINATION: CT lumbar spine wo con DATE: 05/02/2024 19:04 INDICATION: DDD, back pain, RLE symptoms . TECHNIQUE: Computed tomography (CT) of the lumbar spine was performed without intravenous contrast. A utomated exposure control and iterative reconstruction technique were employed. The dose-length produ ct was 1163.81 mGy-cm. COMPARISON: 03/23/2023. FINDINGS: 5 nonrib-bearing lumbar-type vertebral bodies. Pedicles intact. Normal vertebral body align ment. Vertebral body heights preserved. Lumbar disc spaces maintained. Mild right L4/5 facet arthropa thy. Otherwise normal facets and posterior elements. Incidental note of moderate degenerative disc di sease at T11-12 and T12-L1. 5 mm posterior disc osteophyte complex at T12-L1 causing moderate central canal stenosis. IMPRESSION: No acute fracture or traumatic malalignment in the lumbar spine. No severe central canal narrowing or neural foraminal narrowing in the lumbar spine. Moderate central canal narrowing at T12-L1 secondary to degenerative changes. Reviewed, dictated and finalized at location K. IMPRESSION: No acute fracture or traumatic malalignment in the lumbar spine. No severe central canal narrowing or neural foraminal narrowing in the lumbar s pine. Moderate central canal narrowing at T12-L1 secondary to degenerative changes.
[2024-05-02 17:22] VITALS: BP 149/84; PULSE 107; RESP 20; TEMP 36.6; O2SAT 99
--- NOTE | 2024-05-02 18:20 | ED.BACK ---
HPI - Back Pain/Injury General Chief Complaint: Back Pain/Injury Stated Complaint: back pain Time Seen by Provider: 05/02/24 17:46 History of Present Illness HPI Narrative: This is a 28-year-old female with a past medical history significant for chronic low back pain and degenerative disc disease. Patient states she had an exacerbation of her chronic pain that starts radiating down her right leg in the posterior region associated with a burning sensation and neuropathy. Denies any saddle anesthesias. No difficulties with urination or defecation presently but did state that she had an episode of incontinence to urine while at work yesterday. No vaginal discharge, chance of or bleeding. S patient denies any weakness in the extremities able to ambulate with symmetric strength. No recent injuries or trauma. No falls or somatic symptoms such as fever, chills, headache, nausea, vomiting, abdominal pain, back pain. She has not followed up with her orthopedic spine surgeon yet. She states that she has an EMG and nerve study to be done on the 13 of May for her chronic back pain and sciatica. Related Data Allergies Allergy/AdvReac Type Severity Reaction Status Date / Time gabapentin Allergy Rash Verified 05/02/24 17:21 bupropion AdvReac Other Verified 05/02/24 17:27 Review of Systems Review of Systems: Negative unless otherwise as reviewed above in the [facility] Past Medical History Medical History Degenerative disc disease No active medical problems Surgical History Surgical History No pertinent past surgical history Social History Social History Smoking status: Current every day smoker Exam Narrative: GENERAL: [Well-appearing, well-nourished, and in no acute distress.] HEAD: [Normocephalic, atraumatic.] EYES: [PERRLA and EOMI.] ENT: Nares clear, no rhinorrhea or epistaxis. Mucous membranes moist. NECK: Supple. CHEST: [Clear to auscultation. No respiratory distress.] HEART: [Regular rate and rhythm]. No murmur heard. [Normal peripheral pulses.] ABDOMEN: [Soft, nondistended], [nontender], [No rigidity or guarding] EXTREMITIES: Normal range of motion. [No edema.] Reproducible tenderness and burning shooting electrical sensation with tapping of the sciatic nerve distribution. Full range of motion of the extremities. SKIN: Warm, dry, no rash. NEURO: [No focal deficits]. Alert and oriented [x3.] Strength is 5/5 with plantar dorsiflexion. Able to flex and extend at the hip and bend and flex at the knee with symmetric strength. Ambulatory without assistance. No saddle anesthesias or neuropathy in the extremities. PSYCH: [Normal mood and affect.] Course Vital Signs Vital signs: Vital Signs Temperature 36.6 C 05/02/24 17:22 Pulse Rate 107 H 05/02/24 17:22 Respiratory Rate 20 05/02/24 17:22 Blood Pressure 149/84 H 05/02/24 17:22 Pulse Oximetry 99 05/02/24 17:22 Oxygen Delivery Room Air 05/02/24 17:22 Temperature 36.6 C 05/02/24 17:22 Pulse Rate 87 05/02/24 20:50 Respiratory Rate 15 05/02/24 20:50 Blood Pressure 140/82 05/02/24 20:50 Pulse Oximetry 99 05/02/24 20:50 Oxygen Delivery Room Air 05/02/24 17:22 MDM - Back Pain/Injury MDM Narrative Medical decision making narrative: This is a 28-year-old female with past medical history including chronic back pain and sciatica with degenerative disc disease. Patient states she is having exacerbation of her chronic pain that started radiating down her right leg described as a burning electrical sensation consistent with sciatica. She did have concerns for 1 episode of incontinence yesterday but has since been able to use the restroom unassisted without any saddle anesthesias or further incontinence episodes. This episode o
[2024-05-02] MEDS: methocarbamoL 500 MG TABLET 1500 MG PO (18:36)
[2024-05-02] MEDS: HYDROcodone/acetaminophen (*CRX) 5-325 MG TABLET 1 TAB PO (18:36)
[2024-05-02] MEDS: dexAMETHasone SOD PHOS INJ 10 MG/ML 1 ML VIAL IM (18:36)
[2024-05-02 19:18] LABS: Appearance Urine Cloudy (Clear); Bacteria Urine 4+ /hpf; Bilirubin Urine Negative (Negative); Blood Urine Negative (Negative); Color Urine Dark Yellow (Yellow); Glucose Urine UA Negative (Negative); Ketones Urine Trace mg/dL (Negative); Leukocyte Esterase Ur 1+ LEU/UL (Negative); Mucus Urine Present /lpf; Need Manual Microscopic Reviewed; Nitrate Urine Negative (Negative); Protein Urine Trace mg/dL (Negative); RBC Urine 0-2 /hpf (0-2); Squamous Epithelial Cell Urine Moderate /hpf (Few); WBC Urine 21-50 /hpf (0-3); pH Urine 5.5 (5.0-9.0)
[2024-05-02 19:19] LABS: Add Urine Microscopic? YES
[2024-05-02 20:50] VITALS: BP 140/82; PULSE 87; RESP 15; O2SAT 99
[2024-05-03 03:21] LABS: BEDSIDEPREGUCG Negative
== END 2024-05-02 20:52 | disposition home or self-care (01) ==
PROVIDERS: Emergency Provider Student in an Organized Health Care Education/Training Program; PCP Emergency Medicine
DX: S39.012A Strain of muscle, fascia and tendon of lower back, initial encounter (principal); M54.16 Radiculopathy, lumbar region; N39.0 Urinary tract infection, site not specified; G89.29 Other chronic pain; F17.200 Nicotine dependence, unspecified, uncomplicated; X58.XXXA Exposure to other specified factors, initial encounter
CPT/HCPCS: 72131; 81001; 81025; 87086; 87088; 96372; 99284; A9270; J1100

== ENCOUNTER 2025-01-25 09:38 | Outpatient (CLI) | payer OTHER, SELFPAY ==
--- OUTSIDE RECORDS SUMMARY | 2025-01-25 09:46 | XMS_ITS ---
Author Organization Formerly [facility] Address [address] [place] [address] Care Team Providers Care Materials Engineering Technician Name Role Phone Tamiko Beatty Primary Care Provider [phone] Allergies Allergen (clinical drug ingredient) Drug/Non Drug Allergy documented on EMR Reaction Allergy Type Onset Date Status Wellbutrin Unknown Drug Allergy Active gabapentin Gabapentin hives Drug Allergy Activ e REASON FOR VISIT New Patient Psych Eval Medications Medication SIG (Take, Route, Frequency, Duration) Notes Start Date End Date Status hydrOXYzine HCl 25 MG 1 tablet as needed Orally twice a day for 30 days As needed 01/10/2025 Active Abilify 5 MG 1 tablet (1/2 tablet for 1 week, then full tablet) Orally Once a day for 30 days 01/10/2025 Active Vitamin D (Ergocalciferol) 1.25 MG (25233 UT) 1 capsule Oral once a week for 30 days Active Social History Tobacco Use: Social History Observation Description Date Details (start date - stop date) Unknown Sex Assigned At : Social History Observation Description Sex Assigned At Female Tobacco Control (Standard) Question Answer Notes Tobacco use: Uses tobacco in other forms Additional Findings: Tobacco user e-cigarette Problems Problem Type SNOMED Code ICD Code Onset Dates Problem Status W/U Status Risk Notes Problem Bipolar II disorder (16432017) Bipolar 2 disorder, major depressive episode (F31.81) Active confirmed Problem Posttraumatic stress disorder (02432287) PTSD (post-traumati c stress disorder) (F43.10) Active confirmed Problem Overweight (144652901) Over weight (E66.3) Active confirmed Vital Signs Weight 254.0 lbs 01/10/2025 Height 5ft1in in 01/10/2025 BMI 47.99 kg/m2 01/10/2025 Blood pressure systolic 128 mm Hg 01/11/20 25 Blood pressure diastolic 84 mm Hg 025 Heart Rate 80 /min 01/10/2025 Oximetry 98 % 01/10/2025 Temperature 98.5 degrees Fahrenheit 01/11/20 25 Respiratory Rate 16 /min 01/10/2025 Encounters Encounter Location Date Provider Diagnosis [address] [place] [address] 01/10/2025 Tamiko Beatty Bipolar 2 disorder, major depressive episode F31.81 ; PTSD (post-traumatic stress disorder) F43.10 ; Cannabis use disorder F12.90 and Over weight E66.3 Assessments Encounter Date Diagnosis (ICD Code) Assessment Notes Treatment Notes Treatment Clinical Notes Section Notes 01/10/2025 Bipolar 2 disorder, major depressive episode (ICD-10 - F31.81) 01/10/2025 PTSD (post-traumatic stress disorder) (ICD-10 - F43.10) 01/10/2025 Cannabis use disorder (ICD-10 - F12.90) 01/10/2025 Over weight (ICD-10 - E66.3) Plan Of Treatment Medication Medication Name Sig Start Date Stop Date Notes hydrOXYzine HCl 25 MG 1 tablet as needed Orally twice a day for 30 days 01/10/2025 Abilify 5 MG 1 tablet (1/2 tablet for 1 week, then full tablet) Orally Once a day for 30 days 01/10/2025 Vitamin D (Ergocalciferol) 1 .25 MG (35973 UT) 1 capsule Oral once a week for 30 days Future Test Test Name Order Date Hemoglobin A1c* 01/10/2025 Vitamin B12* 01/10/2025 CBC With Differential/Platelet* 01/11/20 25 Vitamin D, 25-Hydroxy* 01/10/2025 TSH+Free T4* 01/10/2025 Lipid Panel* 01/10/2025 CMP 14 Comprehensive Metabolic Panel* Next Appt Details Follow Up: 4 Weeks, Reason: Medication management - can be telehealth appt. 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 Was hospitalized N o. D epression Screening: PHQ-9 L ittle interest or pleasure in doing things?Several days F eeling down, depressed, or hopeless N early every day T rouble falling or staying asleep, or sleeping too much M ore than half the days F eeling tired or having little energy N early every day P oor appetite or overeating N early every day F eeling bad about yourself or that you are a failure, or have let yourself or your family down N early every day T rouble concentrating on things, such as reading the newspaper or watching television N early every day M oving or speaking so slowly that other people could have noticed; or the opposite, being so fidgety or restless that you have been moving around a lot more than usual S everal days T houghts that you would be better off or of hurting yourself in some way S everal (Consider Suicide Assessment Risk) T otal Score 2 0 I nterpretation S evere Depression Intervention D epression Screening Findings P ositive F ollow-Up for Depression N o Referral necessary, patient involved in behavioral health treatment . C SSRS Interpretation and Follow Up Plan: CSSRS Interpretation and Follow Up Plan C SSRS Screen documented using SF Y es R isk Disposition from SF L ow - No Follow Up Plan Required F ollow Up Plan N o Follow Up Plan required at this time. T imeframe of Screening Amee Tafoya creening: [place] Suicide Severity Rating Scale (LF) D o you want to initiate with S creener form 1 . Wish to be : Have you wished you were or wished you could go to sleep and not wake up? N o 2 . Suicidal Thoughts: Have you actually had any thoughts of killing yourself? N o 6 . Suicide Behavior Question: Have you ever done anything,started to do anything, or prepared to end your life? 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 Expectations of this visit- Medication Management Why present now/precipitants/stressors? Symptoms Present- States thinks she has been having a PTSD episode for a few. Feels like there are a lot of stressors. Feeling overwhelmed. Diagnosed with ADHD. Bipolar. PTSD 2 years ago. Onset: Always had. Frequency: Most days Location: Independent of location Triggers- Step daughter. 8 years old. What helps? Happiest place is at work by herself. Goals- To be less explosive. Strengths- Courage Sleep- Staying up late. Doesn't feel she sleeps. Nightmares- Yes, but she doesn't remember. Will toss and turn according to her husbands report to her. Appetite- Poor Depression- 07/18 Do you have times when you are happy? Yes, with kids. Hopeless/helpless- Yes Interest level- Yes Concentration- Difficult Energy Level- Low Anxiety- 10. States she is feeling a constant fight or flight. Worried something will happen to her children. Panic- Yes Repetitive actions- Likes repetitive cleaning. Anger/irritability- Yes. Racing thoughts- Yes Distractible- Yes Indiscretion/Inhibition- Denies Risk taking- Denies Grandiosity- Denies Increased activity- Denies Missed sleep and still felt good- Yes Talkativeness- Yes at times Impulsivity- Occasionally Suicidal Ideation- Passing thought with no plan or intent. Her child and is a protective factor. Homicidal Ideation- Denies Hallucinations- Denies Paranoia- Denies Delusional- Denies Past Psychiatric History- Has been hospitalized when she was 14. Had been treated until mom passed at 17 years old. Was treated for PPD when she was 23. Psychiatric Medications- Sertraline- Medication Adherence- Stopped in a week and a half. Satisfied with medications- Medication efficacy- Side effects- Medication History- Bupropion- suicidal. Sertraline. Can't remember others. Other Medications- Vitamin D Medical Concerns- Vitamin D deficiency. Degenerative disc disease. Head Injury/ Loss of Consciousness- Denies Therapist- None Primary Care Physician- Not currently Allergies- Gabapentin and Wellbutrin. 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 Hobbies/Interests- Reading and painting and writing. TV. [employer] Spiritual Affiliation- Denies Who lives at home? and step daughter and daughter Siblings? Children? 1 daughter. 1 bro and 3 sisters. Legal HX- Denies Substance Use- Tobacco- Vaping. Alcohol- once a year. Marijuana- Daily- A lot . 3 grams a day Denies other substances. G AD-7 Screenin. Feeling nervous, anxious, or on edge : , Nearly every day-3. 2. Not being able to stop or control worrying : , Nearly every day-3. 3. Worrying too much about different things : , More than half the days-2. 4. Trouble sleeping/relaxing : , Nearly every day-3. 5. Being so restless that it is hard to sit still : , More than half the days-2. 6. Becoming easily annoyed or irritable : , Nearly every day-3. 7. Feeling afraid, as if something awful might happen : , Nearly every day-3. FERNANDO-7 Score T otal score 2 0 : M ood Disorder Questionnaire 03-30-22: Please answer each question to the best of your ability. Questions P lease answer each question to the best of your ability. H as there ever been a time period when you were not your usual self and... Y ou felt so good or hyper that other people thought you were not your normal self or you were so hyper that you got into trouble? Y es . Y ou were so irritable that you shouted at people or started fights or arguments? Y es . Y ou got much less sleep than usual and found that you didn't really miss it? N o . Y ou felt much more self-confident than usual??Yes . Y ou were more talkative or spoke much faster than usual? Y es . T houghts raced through your head or you couldn't slow your mind down? Y es . Y ou were so easily distracted by things around you that you had trouble concentrating or staying on track? Y es . Y ou had more energy than usual? Y es . Y ou were more active or did many more things than usual? Y es . Y ou were more social or outgoing than usual, for example, you telephoned friends in the middle of the night? Y es . Y ou were more interested in sex than usual??Yes . Y ou did things that were usual for you or that other people might have thought were excessive, foolish, or risky? Y es . S pending money got you or your family in trouble? N o . I f you checked YES to more than one of the above, have several of these ever happened during the same period of time? Y es . H ow much of a problem did any of these cause you - like being unable to work; having family, money or legal troubles; getting into arguments or fights? M oderate problem . * ROS: P sych ROS: Constitutional D enies. E yes D enies. E ars/Nose/Mouth/Throat D enies. R espiratory D enies. A llergic/Immunologic D enies.?Cardiovascular D enies. G I D enies. G U D enies. M usculoskeletal R eports, C hronic pain,Back pain. N eurological D enies. I ntegumentary D enies. E ndocrine D enies. H ematological/Lymphatic D enies. P sych R eports anger/irritability,Reports depression/anxiety,Reports signs/symptoms of ADHD, Denies HI. Passive SI with no plan or intent. . * Medical History: * Surgical History: D enies Past Surgical History * Hospitalization/Major Diagno stic Procedure: C hild Pediatric Mental Health x3 * Family History: F ather: alive. M other: . 1 brother(s) , 3 sister(s) . 1 daughter(s) . .? Degenerative Disc Disease- Paternal Mental Health, Diabetes- Maternal. * Social History: P rimary Social History: L iving Arrangement L iving Arrangement: I ndependent Living I s this a supportive environment? Y es Single Question Alcohol Screening H ow may times in the past year have you had (4 for women, or 5 for men) or more drinks in a day? 1 T obacco Use: T obacco Control (Standard) T obacco use: U ses tobacco in other forms A dditional Findings: Tobacco user e -cigarette M iscellaneous: M ethod of learning P referred method of learning: R eading,Demonstration,Hearing * Medications: N ot-TakingVitamin D (Ergocalciferol) 1.25 MG (24080 UT) Capsule Oral Not-Taking Vitamin D (Ergocalciferol) 1.25 MG (06846 UT) Capsule Oral * Allergies: G abapentin: hivesWellbutrinno[Allergies Verified] Objective: * Vitals: I nitials: rt, Wt:254.0, Ht: 5ft1in, BMI:47.99, BP:128/84, HR:80, Oxygen sat %:98, Temp:98.5, RR:16, LMP: 01/31, Pain scale:0. * Examination: M ental Status Exam: SENSORIUM AND COGNITION Alert , Oriented to Person , Oriented to Place , Oriented to Time , Oriented to Situation. ATTENTION AND CONCENTRATION N o deficits. APPEARANCE A ppropriate. ATTITUDE AND BEHAVIOR C ooperative , Receptive. MEMORY I mmediate , Recent , Remote. EYE CONTACT G ood. AFFECT , Tearful. MOOD , Dysphoric. SPEECH QUANTITY A ppropriate. SPEECH QUALITY S pontaneous , Fluent , Appropriate volume.? THOUGHT PROCESS C oherent and goal directed. THOUGHT CONTENT A ppropriate - WNL , No evidence of delusional content , No reports paranoia. LANGUAGE A ppropriate- WNL. MOTOR ACTIVITY N ormal gait , Goal directed , Relaxed. SUICIDAL IDEATION D enies suicidal ideation. HOMICIDAL IDEATION D enies homicidal ideation. HALLUCINATIONS D enies hallucinations. INSIGHT F air. JUDGMENT F air. FUND OF KNOWLEDGE F air. ABILITY TO PARTICIPATE IN TREATMENT M oderate. WILLINGNESS TO PARTICIPATE IN TREATMENT M oderate. SIGNIFICANT FINDINGS REGARDING MENTAL STATUS N one. ? Assessment: * Assessment: 1. P TSD (post-traumatic stress disorder) - F43.10 2 . B ipolar 2 disorder, major depressive episode - F31.81 (Primary) 3 . C annabis use disorder - F12.90? 4. O rupali weight - E66.3 Plan: * Treatment: * Procedure Codes: 3 008F BODY MASS INDEX DOCD * Preventive Medicine: Counseling: S MOKING: Patient counselled on the dangers of tobacco use and urged to quit. 0 01/10/2025 . C are goal follow-up plan: BMI management provided Y es Above Normal BMI Follow-up L ifestyle education regarding diet * Follow Up: 4 Weeks (Reason: Medication management - can be telehealth appt.) * * Sign off status: Completed true * Provider: Zahra Beatty DNP, PMARTP-, [address] LIGHT Date: 0 01/10/2025 Generated for Printing/Faxing/eTransmitting on: 0 01/25/2025 09:46 AM CDT History and Physical Notes * HPI (History of Present Illness) Category Sub-Category Detail Notes Category Not es Interim History Was hospitalized No Emergency room visit No Depression Screening PHQ-9 Little inte rest or pleasure in doing things: Several days Feeling down, depressed, or hopeless: Ne maricruz every day Trouble falling or staying a sleep, or sleeping too much: More than half the days Feeling tired or having little energy: N early every day Poor appetite or overeating: Nearly ever y day Feeling bad about yourself o r that you are a failure, or have let yourself or your family down: Nearly every day Trouble concentrating on thi ngs, such as reading the newspaper or watching television: Nearly every day Moving or speaking so slowly that other people could have noticed; or the opposite, being so fidgety or restless that you have been moving around a lot more than usual: Several days Thoughts that you would be b magdalena off or of hurting yourself in some way: Several days (Consider Suicide Assessment Risk) Total Score: 20 Interpretation: Severe Depression Intervention Depression Screening Findings: P ositive Follow-Up for Depression: No Referral necessary, patient involved in behavioral health treatment . FERNANDO-7 Screening 1. Feeling nervous, anxious, or on edg e :, Nearly every day-3 2. Not being able to stop or control wor rying :, Nearly every day-3 3. Worrying too much about different thi ngs :, More than half the days-2 4. Trouble sleeping/relaxing :, Nearly e very day-3 5. Being so restless that it is hard to sit still :, More than half the days-2 6. Becoming easily annoyed or irritable :, Nearly every day-3 7. Feeling afraid, as if something awful might happen :, Nearly every day-3 FERNANDO-7 Score Total score: 20 : Screening [place] Suicide Sev erity Rating Scale (LF) Do you want to initiate with: Screener form 1. Wish to be : Have you wished you were or wished you could go to sleep and not wake up?: No 2. Suicidal Thoughts: Have you actually had any thoughts of killing yourself?: No 6. Suicide Behavior Question: Have you ever done anything,started to do anything, or prepared to end your life?: No Interpretation:: Low Risk Mood Disorder Questionnaire 03-30-22 Questions Please answer each question to the best of your ability.: Has there ever been a time period when you were not your usual self and... You felt so good or hyper th at other people thought you were not your normal self or you were so hyper that you got into trouble?: Yes . You were so irritable that y ou shouted at people or started fights or arguments?: Yes . You got much less sleep than usual and found that you didn't really miss it?: No . You felt much more self-confident than u sual?: Yes . You were more talkative or spoke much fa ster than usual?: Yes . Thoughts raced through your head or you couldn't slow your mind down?: Yes . You were so easily distracte d by things around you that you had trouble concentrating or staying on track?: Yes . You had more energy than usual?: Yes . You were more active or did many more th ings than usual?: Yes . You were more social or outg oing than usual, for example, you telephoned friends in the middle of the night?: Yes . You were more interested in sex than usu al?: Yes . You did things that were usu al for you or that other people might have thought were excessive, foolish, or risky?: Yes . Spending money got you or your family in trouble?: No . If you checked YES to more t justice one of the above, have several of these ever happened during the same period of time?: Yes . How much of a problem did an y of these cause you - like being unable to work; having family, money or legal troubles; getting into arguments or fights?: Moderate problem . CSSRS Interpretation and Follow Up Plan CSSRS Interpretation and Follow Up Plan CSSRS Screen documented using SF: Yes Risk Disposition from SF: Low - No Follo w Up Plan Required Follow Up Plan: No Follow Up Plan requir ed at this time. Timeframe of Screening: Today Examination Category Sub-Category Detail Notes Category Not es Mental Status Exam SENSORIUM AND COGNITION Alert , Oriented to Person , Oriented to Place , Oriented to Time , Oriented to Situation ATTENTION AND CONCENTRATION No deficits APPEARANCE Appropriate ATTITUDE AND BEHAVIOR Cooperative , Rece ptive MEMORY Immediate , Recent , Remote EYE CONTACT Good AFFECT , Tearful MOOD , Dysphoric SPEECH QUANTITY Appropriate SPEECH QUALITY Spontaneous , Fluent , Appropriate volume THOUGHT PROCESS Coherent and goal di rected THOUGHT CONTENT Appropriate - WNL , No evidence of delusional content , No reports paranoia MOTOR ACTIVITY Normal gait , Goal d irected , Relaxed SUICIDAL IDEATION Denies suicidal idea tion HOMICIDAL IDEATION Denies homicidal darrell ation HALLUCINATIONS Denies hallucination s INSIGHT Fair JUDGMENT Fair FUND OF KNOWLEDGE Fair ABILITY TO PARTICIPATE IN TREATMENT Mode rate WILLINGNESS TO PARTICIPATE IN TREATMENT Moderate SIGNIFICANT FINDINGS REGARDI NG MENTAL STATUS None LANGUAGE Appropriate- WNL
--- OUTSIDE RECORDS SUMMARY | 2025-01-25 09:46 | XMS_ITS | Patient Health Record ---
Author Organization [facility] Address [address] [place] [address] Care Team Providers Care Completion Supervisor Name Role Phone Tamiko Beatty Primary Care Provider [phone] Allergies Allergen (clinical drug ingredient) Drug/Non Drug Allergy documented on EMR Reaction Allergy Type Onset Date Status Wellbutrin Unknown Drug Allergy Active gabapentin Gabapentin hives Drug Allergy Activ e Reason For Referral No Information Medications Medication SIG (Take, Route, Frequency, Duration) Notes Start Date End Date Status hydrOXYzine HCl 25 MG 1 tablet as needed Orally twice a day for 30 days As needed 01/10/2025 Active Abilify 5 MG 1 tablet (1/2 tablet for 1 week, then full tablet) Orally Once a day for 30 days 01/10/2025 Active Vitamin D (Ergocalciferol) 1.25 MG (24206 UT) 1 capsule Oral once a week [...] Problem Status W/U Status Risk Notes Problem Posttraumatic stress disorder (90221595) PTSD (post-traumati c stress disorder) (F43.10) Active confirmed Problem Overweight (164225235) Over weight (E66.3) Active confirmed Problem Bipolar II disorder (49536183) Bipolar 2 disorder, major depressive episode (F31.81) Active confirmed Vital Signs Heart Rate 80 /min 01/10/2025 Temperature 98.5 degrees Fahrenheit 01/10/2025 Respiratory Rate 16 /min 01/10/2025 Blood pressure diastolic 84 mm Hg 01/10/2025 Oximetry 98 % 01/10/2025 Height 5ft1in in 01/10/2025 Blood pressure systolic 128 mm Hg 01/10/2025 Weight 254.0 lbs 01/10/2025 BMI 47.99 kg/m2 01/10/2025 Encounters Encounter Location Date Provider Diagnosis [address] [place] [address] 01/10/2025 Tamiko Beatty Bipolar 2 disorder, major depressive episode F31.81 ; PTSD (post-traumatic stress disorder) F43.10 ; Cannabis use disorder F12.90 and Over weight E66.3 Assessments Encounter Date Diagnosis (ICD Code) Assessment Notes Treatment Notes Treatment Clinical Notes Section Notes 01/10/2025 PTSD (post-traumatic stress disorder) (ICD-10 - F43.10) 01/10/2025 Bipolar 2 disorder, major depressive episode (ICD-10 - F31.81) 01/10/2025 Cannabis use disorder (ICD-10 - F12.90) 01/10/2025 Over weight (ICD-10 - E66.3) Plan Of Treatment Future Test Test Name Order Date Hemoglobin A1c* 01/10/2025 Vitamin B12* 01/10/2025 CBC With Differential/Platelet* 01/11/20 25 Vitamin D, 25-Hydroxy* 01/10/2025 TSH+Free T4* 01/10/2025 Lipid Panel* 01/10/2025 CMP 14 Comprehensive Metabolic Panel* Insurance Providers Payer Name Payer Address Payer Phone Subscriber Number Group Number Insured Name Patient Relationship to Insured Coverage Start Date Coverage End Date [facility] Attn Claims Department [address] [place] [address] [id number] Aurora Pierce Self - patient is the insured Medical (General) History Medical History History ICD Code Degenerative disc disease Hospitalization History Reason Date(Month/Year) Pediatric Mental Health x3 Child
--- OUTSIDE RECORDS SUMMARY | 2025-01-25 09:46 | XMS_ITS | Data Portability ---
Author Organization [facility] [place] Address [address] [place] [address] Assessment Encounter Date Assessment Date Assessment LastModified by Organization Details LastModified Time 11/11/2024 11/11/2024 Annual gynecological exam performed. Patient will come back in a year unless there are new symptoms. Not available 11/11/2024 12:29:46 Plan of Treatment Reminders Order Date Submit Date Provider Last Modified By Organization Details Last Modified Time Details Appointments None recorded. Lab CBC w/ auto diff 2024 025 [facility] (Lab), [address] [place], [address], 5 17:54:40 CMP, serum or plasma 2024 025 [facility] (Lab), [address] [place], [address], 5 17:54:41 lipid panel, blood 2024 025 [facility] (Lab), [address] [place], [address], 5 17:54:41 TSH, serum or plasma 2024 025 [facility] (Lab), [address] [place], [address], 5 17:54:42 25-hydroxyv itamin D2 + 25-hydroxyv itamin D3, QN, serum or plasma 2024 025 [facility] (Lab), [address], [place], [address], 5 17:54:43 dhea-sulfat e, serum 2024 025 [facility] (Lab), [address], [place], [address], 5 17:54:40 hormone panel, serum or plasma 2024 025 [facility] (Lab), [address], [place], [address], 5 17:54:44 progesteron e, serum 2024 025 [facility] (Lab), [address] [place], [address], 5 17:54:43 prolactin, serum 2024 025 [facility] (Lab), [address] [place], [address], 5 17:54:43 shbg (sex hormone-bin ding globulin), serum 2024 025 [facility] (Lab), [address] [place], [address], 5 17:54:42 TSH, serum or plasma 2024 025 [facility] (Lab), [address] [place], [address], 5 04:01:37 testosteron e free/testos terone total, ratio, serum 2024 025 [facility] (Lab), [address] [place], [address], 5 17:54:44 Referral None recorded. Procedures None recorded. Surgeries None recorded. Imaging US, pelvis 2024 025 [email or web address] [place], [address], [place], [address], 5 21:43:51 US, transvagina l 2024 025 [email or web address] [place], [address], [place], [address], 21:43:51 Medication Orders Vitamin D2 1,250 mcg (50,000 unit) capsule 2024 025 [id number], [address] [facility], [place], [place], [id number], 5 13:05:28 Wellbutrin XL 150 mg 24 hr tablet, extended release 2024 025 [place] [id number], [address] [facility], [place], [place], [id number], 5 09:23:35 Patient TargetsNo targets recorded. Patient InstructionsNo instructions recorded. Reason for Referral None Reported. Results Created Date Observation Date Name Description Value Unit Range Abnormal Flag Note LastModifiedBy Organization Detail LastModifiedTime 11/11/1911/11/2024 CBC W/DIF F WBC 6.9 10'3/ uL 3.5-10 .5 Not Available [facility] (Lab) [address], [place], [address], 11/14/2024 17:54:40 11/11/19 25 11/11/2024 CBC W/DIF F RBC 4.16 10'6/ uL (based on docume nted legal sex) 3.80-5 .20 Not Available [facility] (Lab) [address], [place], [address], 11/14/2024 17:54:40 11/11/19 25 11/11/2024 CBC W/DIF F HGB 12.9 g/dL (based on docume nted legal sex) 11.6-1 5.4 Not Available [facility] (Lab) [address], [place], [address], 11/14/2024 17:54:40 11/11/19 25 11/11/2024 CBC W/DIF F HCT 39.6 % (based on docume nted legal sex) 34.0-4 5.0 Not Available [facility] (Lab) [address], [place], [address], 11/14/2024 17:54:40 11/11/19 25 11/11/2024 CBC W/DIF F MCV 95.2 fL 80.0-9 9.0 Not Available [facility] (Lab) [address], [place], [address], 11/14/2024 17:54:40 11/11/19 25 11/11/2024 CBC W/DIF F MCH 31.0 pg 27.0-3 4.0 Not Available [facility] (Lab) [address], [place], [address], 11/14/2024 17:54:40 11/11/19 25 11/11/2024 CBC W/DIF F MCHC 32.6 g/dL 32.0-3 5.5 Not Available [facility] (Lab) [address], [place], [address], 11/14/2024 17:54:40 11/11/19 25 11/11/2024 CBC W/DIF F RDW 11.9 % 11.0-1 5.0 Not Available [facility] (Lab) [address], [place], [address], 11/14/2024 17:54:40 11/11/19 25 11/11/2024 CBC W/DIF F plt 247 10'3/ uL 150-40 0 Not Available [facility] (Lab) [address], [place], [address], 11/14/2024 17:54:40 11/11/19 25 11/11/2024 CBC W/DIF F MPV 11.5 fL 8.8-12 .1 Not Available [facility] (Lab) [address], [place], [address], 11/14/2024 17:54:40 11/11/19 25 11/11/2024 CBC W/DIF F neutrophils 59.9 % 34.0-7 3.0 Not Available [facility] (Lab) [address], [place], [address], 11/14/2024 17:54:40 11/11/19 25 11/11/2024 CBC W/DIF F lymphocytes 31.4 % 15.0-5 0.0 Not Available [facility] (Lab) [address], [place], [address], 11/14/2024 17:54:40 11/11/19 25 11/11/2024 CBC W/DIF F monocytes 7.9 % 1.0-15 .0 Not Available [facility] (Lab) [address], [place], [address], 11/14/2024 17:54:40 11/11/19 25 11/11/2024 CBC W/DIF F eosinophils 0.3 % 0.0-8. 0 Not Available [facility] (Lab) [address], [place], [address], 11/14/2024 17:54:40 11/11/19 25 11/11/2024 CBC W/DIF F basophils 0.4 % 0.0-2. 0 Not Available [facility] (Lab) [address], [place], [address], 11/14/2024 17:54:40 11/11/19 25 11/11/2024 CBC W/DIF F immature granulocytes 0.1 % no define d refere nce range Immat ure Granu locyt es (IG) repre sents autom ated enume ratio n of Metam yeloc ytes, Myelo cytes and Promy elocy sundeep when IG is < 5%. Blast s are not inclu ded in IG and repor obdulio separ ately if prese nt. Not Available [facility] (Lab) [address], [place], [address], 11/14/2024 17:54:40 11/11/19 25 11/11/2024 CBC W/DIF F absolute neutrophils 4.2 10'3/ uL 1.5-8. 0 Not Available [facility] (Lab) [address], [place], [address], 11/14/2024 17:54:40 11/11/19 25 11/11/2024 CBC W/DIF F absolute lymphocytes 2.2 10'3/ uL 1.0-4. 0 Not Available [facility] (Lab) [address], [place], [address], 11/14/2024 17:54:40 11/11/19 25 11/11/2024 CBC W/DIF F absolute monocytes 0.6 10'3/ uL 0.2-1. 0 Not Available [facility] (Lab) [address], [place], [address], 11/14/2024 17:54:40 11/11/19 25 11/11/2024 CBC W/DIF F absolute eosinophils 0.0 10'3/ uL 0.0-0. 6 Not Available [facility] (Lab) [address], [place], [address], 11/14/2024 17:54:40 11/11/19 25 11/11/2024 CBC W/DIF F absolute basophils 0.0 10'3/ uL 0.0-0. 3 Not Available [facility] (Lab) [address] [place], [address], 11/14/2024 17:54:40 11/11/19 25 11/11/2024 CBC W/DIF F absolute immature granulocytes 0.0 10'3/ uL 0.00-0 .10 Refer ence range s for nonbi nary/ inter sex or unspe cifie d gende r patie nts have not been estab lishe d. Pleas e refer to the [facility] wing table for range s estab lishe d for cisge nder patie nts and evalu ate in the clini jose antonio pete xt of the indiv idual patie nt: https ://oswaldo drummond book. nm.or g/Gen derX Not Available [facility] (Lab) [address], [place], [address], 11/14/2024 17:54:40 11/11/19 25 11/11/2024 DHEA SULFA TE DHEA-sulfate 233 ug/dL Femal e Range s Age(y ) Range (ug/d L) 10-15 34-28 0 15-20 65-36 8 20-25 148-4 07 25-35 99-34 0 35-45 61-33 7 45-55 35-25 6 55-65 19-20 5 65-75 9-246 > 75 12-15 4 Not Available [facility] (Lab) [address], [place], [address], 11/14/2024 17:54:40 11/11/19 25 11/11/2024 LIPID PANEL ,AMA (LDL- CALC) total cholesterol 182 mg/dL 0-[address] [facility] (Lab) [address] [place], [address], 11/14/2024 17:54:41 11/11/19 25 11/11/2024 LIPID PANEL ,AMA (LDL- CALC) triglyceride s 97 mg/dL 0-150 NCEP Refer ence Value s for Trigl yceri durga: Emilia l: <150 mg/dL Borde rline High: 150 - 199 mg/dL High: 200 - 499 mg/dL Very High: >/= 500 mg/dL Not Available [facility] (Lab) [address], [place], [address], 11/14/2024 17:54:41 11/11/19 25 11/11/2024 LIPID PANEL ,AMA (LDL- CALC) HDL cholesterol 48 mg/dL >[address] [facility] (Lab) [address] [place], [address], 11/14/2024 17:54:41 11/11/19 25 11/11/2024 LIPID PANEL ,AMA (LDL- CALC) LDL cholesterol 114 mg/dL 0-99 high Cutof f value s recom vic d by the Natio nal Trudi stero l Educa tion Progr am: DL ABLE: Trudi stero l <200 mg/dL LDL <100 mg/dL BORDE RLINE : Trudi stero l 200-2 39 mg/dL LDL 101-1 59 mg/dL HIGHE R RISK: Trudi stero l >240 mg/dL LDL >160 mg/dL , HDL <40 mg/dL Not Available [facility] (Lab) [address] [place], [address], 11/14/2024 17:54:41 11/11/19 25 11/11/2024 LIPID PANEL ,AMA (LDL- CALC) non-HDL cholesterol 134 mg/dL no refere nce range A reaso nable goal for non-H DL trudi stero l is one that is 30 mg/dL highe r than the LDL trudi stero l goal. Not Available [facility] (Lab) [address] [place], [address], 11/14/2024 17:54:41 11/11/1911/11/2024 LIPID PANEL ,AMA (LDL- CALC) chol/HDL ratio 3.8 . 0.0-5. 0 On January 31, 2023, [facility] labor francisco smith ed the equat ion for calcu latin g estim ated low-d ensit y lipop rotei n-cho leste rol (LDL- C) from the Fried renny equat ion to the Nilda brown/Nathalie terrazas equat ion. This new equat ion is only valid for lipid panel s with trigl yceri durga < 400 mg/dL . Daniel boothe have demon brunilda ed that this new equat ion will impro ve the accur acy of LDL-C , espec ially in scena [place] when LDL-C joellen ntrat ions are relat ively low (< 100 mg/dL ), trigl yceri durga are eleva obdulio, or patie nt is non-f astin g. Refer ences : - Nilda brown, Phu Flannery, Dalton Myers , Karthik bernard, Adriel Pringle, Adriel baker, Abhishek camilo , and Kermit [place]ath[place] . 2013. Comp ariso n of a Novel Metho d vs the Fried renny Equat ion for Estim ating Low-D ensit y Lipop rotei n Trudi stero l Level s from the [facility] Lipid Profi emanuel. ROEL: The Journ al of the Ameri can Medic al Assoc iatio n 310 (19): 2060- . - Donny roth V, Carmenza J, Moises roth A, Sharon M, Raúl e R, Daiana roth E, Sadi [facility] RS, Rivas SR, Nilda brown SS. Fast ing Versu s Nonfa sting and Low-D ensit y Lipop rotei n Trudi stero l Accur acy. Circu latio n. 2017Oct 10;137 (1):1 0-19. Not Available [facility] (Lab) [address], [place], [address], 11/14/2024 17:54:41 11/11/19 25 11/11/2024 CMP(C OMPRE HENSI VE METAB OLIC PANEL ) sodium 141 mmol/ L 133-14 6 Not Available [facility] (Lab) [address], [place], [address], 11/14/2024 17:54:41 11/11/19 25 11/11/2024 CMP(C OMPRE HENSI VE METAB OLIC PANEL ) potassium 3.9 mmol/ L 3.5-5. 1 Not Available [facility] (Lab) [address], [place], [address], 11/14/2024 17:54:41 11/11/19 25 11/11/2024 CMP(C OMPRE HENSI VE METAB OLIC PANEL ) chloride 105 mmol/ L 98-107 Not Available [facility] (Lab) [address], [place], [address], 11/14/2024 17:54:41 11/11/19 25 11/11/2024 CMP(C OMPRE HENSI VE METAB OLIC PANEL ) carbon dioxide 25 mmol/ L 21-31 Not Available [facility] (Lab) [address], [place], [address], 11/14/2024 17:54:41 11/11/19 25 11/11/2024 CMP(C OMPRE HENSI VE METAB OLIC PANEL ) anion gap 11 mmol/ L 4-13 Not Available [facility] (Lab) [address], [place], [address], 11/14/2024 17:54:41 11/11/19 25 11/11/2024 CMP(C OMPRE HENSI VE METAB OLIC PANEL ) blood urea nitrogen 15 mg/dL 7-25 Not Available [facility] (Lab) [address], [place], [address], 11/14/2024 17:54:41 11/11/19 25 11/11/2024 CMP(C OMPRE HENSI VE METAB OLIC PANEL ) creatinine 0.73 mg/dL 0.60-1 .30 Not Available [facility] (Lab) [address], [place], [address], 11/14/2024 17:54:41 11/11/19 25 11/11/2024 CMP(C OMPRE HENSI VE METAB OLIC PANEL ) egfrcr (CKD-epi 2020) >90 mL/mi n/1.7 3_m2 >=60 Not Available [facility] (Lab) [address], [place], [address], 11/14/2024 17:54:41 11/11/19 25 11/11/2024 CMP(C OMPRE HENSI VE METAB OLIC PANEL ) calcium 9.6 mg/dL 8.3-10 .5 Not Available [facility] (Lab) [address], [place], [address], 11/14/2024 17:54:41 11/11/19 25 11/11/2024 CMP(C OMPRE HENSI VE METAB OLIC PANEL ) glucose 85 mg/dL 70-100 Not Available [facility] (Lab) [address], [place], [address], 11/14/2024 17:54:41 11/11/19 25 11/11/2024 CMP(C OMPRE HENSI VE METAB OLIC PANEL ) protein, total 6.9 g/dL 6.4-8. 3 Not Available [facility] (Lab) [address], [place], [address], 11/14/2024 17:54:41 11/11/19 25 11/11/2024 CMP(C OMPRE HENSI VE METAB OLIC PANEL ) albumin 4.5 g/dL 3.5-5. 0 Not Available [facility] (Lab) [address], [place], [address], 11/14/2024 17:54:41 11/11/19 25 11/11/2024 CMP(C OMPRE HENSI VE METAB OLIC PANEL ) ALT 12 units /L 9-43 Not Available [facility] (Lab) [address], [place], [address], 11/14/2024 17:54:41 11/11/19 25 11/11/2024 CMP(C OMPRE HENSI VE METAB OLIC PANEL ) alkaline phosphatase 71 units /L 34-104 Not Available [facility] (Lab) [address], [place], [address], 11/14/2024 17:54:41 11/11/19 25 11/11/2024 CMP(C OMPRE HENSI VE METAB OLIC PANEL ) AST 11 units /L 13-39 low Not Available [facility] (Lab) [address], [place], [address], 11/14/2024 17:54:41 11/11/19 25 11/11/2024 CMP(C OMPRE HENSI VE METAB OLIC PANEL ) bilirubin, total 0.4 mg/dL 0.2-1. 2 Not Available [facility] (Lab) [address], [place], [address], 11/14/2024 17:54:41 11/11/19 25 11/11/2024 TSH, REFLE X FREE T4 TSH 2.95 uIU/m L 0.30-5 .33 Not Available [facility] (Lab) [address], [place], [address], 11/14/2024 17:54:42 11/11/19 25 11/11/2024 HUMAN SEX HORMO NE SABAS NG GLOBU DEMI sex hormone binding globulin 29.9 nmole s/L 18.2-1 35.5 Not Available [facility] (Lab) [address], [place], [address], 11/14/2024 17:54:42 11/11/19 25 11/11/2024 VITAM IN D, 25-OH (TOTA L D2/D3 ) vitamin D, 25-hydroxy, total 14.1 NG/mL 30.0-1 00.0 low Sugge stive of Defic iency : <20 ng/mL Sugge stive of Insuf ficie ncy: 20-29 ng/mL Sugge stive of Suffi cienc y: 30-10 0 ng/mL Sugge stive of Toxic ity: >150 ng/mL Not Available [facility] (Lab) [address], [place], [address], 11/14/2024 17:54:43 11/11/19 25 11/11/2024 PROGE STERO NE progesterone 8.44 NG/mL This assay was perfo rmed using [employer] ratio n reage nts and test kits. Value s obtai michelle with other assay metho ds or kits canno t be used inter [facility] . Femal e Proge stero ne Range s: Folli cular phase 0.06- 0.89 ng/mL Ovula tion phase 0.12- 12.00 ng/mL Lutea l phase 1.83- 23.90 ng/mL Postm enopa usal <0.05 -0.13 ng/mL Healt hy Pregn ant Women 1st Trime ster 11.0- 44.30 2nd Trime ster 25.40 -83.3 0 3rd Trime ster 58.70 -214. 00 Not Available [facility] (Lab) [address] [place], [address], 11/14/2024 17:54:43 11/11/19 25 11/11/2024 PROLA CTIN prolactin, total 9.11 NG/mL 4.79-2 3.30 This assay was perfo rmed using [employer] ratio n reage nts and test kits. Value s obtai michelle with other assay metho ds or kits canno t be used inter [facility] . Not Available [facility] (Lab) [address] [place], [address], 11/14/2024 17:54:43 11/11/19 25 11/11/2024 FSH, LH, ESTRA DIOL estradiol 113.0 pg/mL This assay was perfo rmed using [employer] ratio n reage nts and test kits. Value s obtai michelle with other assay metho ds or kits canno t be used inter [facility] . Femal e Estra diol Range s: Folli cular phase 12.4- 233 pg/mL Ovula tion phase 41.0- 398 pg/mL Lutea l phase 22.3- 341 pg/mL Postm enopa usal <5-13 8 pg/mL Healt hy Pregn ant Women 1st Trime ster 154-3 243 pg/mL 2nd Trime ster 1561- 91955 pg/mL 3rd Trime ster 8525- >3000 0 pg/mL Not Available [facility] (Lab) [address], [place], [address], 11/14/2024 17:54:44 11/11/1911/11/2024 FSH, LH, ESTRA DIOL FSH 4.1 mIU/m L This assay was perfo rmed using [employer] ratio n reage nts and test kits. Value s obtai michelle with other assay metho ds or kits canno t be used inter [facility] . Femal es Folli cular : 3.5-1 2.5 mIU/m L Ovula tion: 4.7-2 1.5 mIU/m L Lutea l: 1.7-7 .7 mIU/m L Postm enopa use: 25.8- 134.8 mIU/m L Not Available [facility] (Lab) [address], [place], [address], 11/14/2024 17:54:44 11/11/1911/11/2024 FSH, LH, ESTRA DIOL LH 3.1 mIU/m L This assay was perfo rmed using [employer] ratio n reage nts and test kits. Value s obtai michelle with other assay metho ds or kits canno t be used inter [facility] . Femal es Mid-F ollic ular: 2.4-1 2.6 mIU/m L Mid-C ycle: 14.0- 95.6 mIU/m L Mid-L uteal : 1.0-1 1.4 mIU/m L Postm enopa use: 7.7-5 8.5 mIU/m L Not Available [facility] (Lab) [address], [place], [address], 11/14/2024 17:54:44 11/11/1911/11/2024 TESTO STERO NE, FREE( DIALY SIS) AND TOTAL (LC/M S/MS) testosterone , total 29 NG/dL 2-45 For addit ional infor federica smith e refer to http: //edu catio n.que stdia gnost ics.c om/fa q/ Total Testo stero neLCM SMSFA Q165 (This link is being provi ded for infor matio nal/ educa tk l purpo ses only. ) This test was devel oped and its xavier tical perfo rmanc e cornell cteri stics have been deter mined by [employer] [facility] [facility] [place]. It has not been clear ed or appro stevie by the U.S. Food and Drug Admin istra tion. This assay has been valid ated pursu ant to the CLIA regul ation s and is used for clini jose antonio purpo ses. Not Available [facility] (Lab) [address] [place], [address], 11/14/2024 17:54:44 11/11/1911/11/2024 TESTO STERO NE, FREE( DIALY SIS) AND TOTAL (LC/M S/MS) testosterone , free 4.4 pg/mL 0.1-6. 4 This test was devel oped and its xavier tical perfo rmanc e cornell cteri stics have been deter mined by [employer] [facility] [facility] [place] [place]. It has not been clear ed or appro stevie by the U.S. Food and Drug Admin istra tion. This assay has been valid ated pursu ant to the CLIA regul ation s and is used for clini jose antonio purpo ses. Perfo rming Organ izati on [facility] n: Site ID: AMD Name: [employer] o[employer] Jamie [facility] Insti tute Addre ss: [id number] [employer] [place], [place] Direc tor: Gustavo Oscar MD PhD Not Available [facility] (Lab) [address] [place], [address], 11/14/2024 17:54:44 11/11/19 25 11/11/2024 IMAGE GUIDE D PAP, REFLE X HPV IF ASCUS ONLY image guided Pap, reflex HPV ASCUS only SEE RESULT S BELOW CASE REPOR T: Cytol ogy Gynec ologi jose antonio Repor t Case: [id number] Autho laxmi paresh Provi rajan: Joseph Duran MD Colle cted: 11/11 1306 Order ing Locat ion: [place] Patho phoebe Recemona stevie: 11/12 1154 First Scree n: Sabas hernández, Jeancarlos mead, CT Speci men: Lanette leone Pap - Image d, Cervi x STATE MENT OF ADEQU ACY: Satis facto ry for evalu ation Trans forma tion zone compo nent prese nt ----- ----- ----- ----- ----- ----- ----- ----- ----- ----- ----- ----- ----- ----- ----- ----- ----- ---- FINAL DIAGN OSIS: Negat liz for Intra epith elial Lesvalerie brown or Elham schulte (NIL) . Shift in laya sugge stive of bacte rial vagin osis. Elect valorie biswas d by Jeancarlos hernández, CT on 025 at 1308 ABRASIVE BAND WINDER ----- ----- ----- ----- ----- ----- ----- ----- ----- ----- ----- ----- ----- ----- ----- ----- ----- ---- COMME NT: This speci men was revie wed by a Cytot echno logis t and/o r Patho logis t (as indic ated in this repor t) after evalu ation using the Thinp rep Imagi ng Syste m. CLINI JOSE ANTONIO INFOR MATIO N: Menst rual Statu s: LMP (if appli cable ): Clini jose antonio Histo ry/Pr eviou s Pap: Type of Neopl willy (if appli cable ): Signi blane t Clini jose antonio Findi ngs: Other Histo ry: Hormo jayant (if appli cable ): PAP EDUCA TK L NOTE: The Pap Test is a scree vasu test with an inher ent false negat liz rate. Liqui d-bas ed sampl ing may decre ase, but will not elimi trevon, false negat liz resul ts. A negat liz resul t does not precl ude the prese nce and/o r devel opmen t of disea se, since the prese nce of abnor mal cells in the sampl e depen ds on the locat ion of the lesio n and sampl ing techn ique. Edd nued regul ar scree vasu is the best metho d of cance r preve ntion . If repor obdulio cytol ogic findi ng do not corre late with physi jose antonio and/o r histo rical findi ngs, furth er inves tigat ion is recom vic d, as clini sari warra nted. Not Available [facility] (Lab) [address], [place], [address], 11/15/2024 14:11:16 11/20/19 25 11/20/2024 US, pelvi s No observ ation record ed. [email or web address] [place] [address], [place], [address], 11/20/2024 17:41:26 11/20/19 25 11/20/2024 US, trans vagin al No observ ation record ed. [email or web address] [place] [address], [place], [address], 11/20/2024 17:41:51 11/20/19 25 11/20/2024 US, pelvi s No observ ation record ed. [email or web address] [address], [place], [address], 11/20/2024 22:00:24 Result Notes None recorded. Problems Name Problem SNOMED Code Status Onset Date Resolution Date Notes Provider Name and Address Organization Details Recorded Time Rubella screening status [id number] Active 2017 Encounter for screening , unspecifi ed;Record ed Elsewhere : No Locati on: [facility] So urce: EHR Chron ic: N Practic e ID: [id number] Bill able Time: 11:15:00 AM Not Available [facility] 0 14:31:02 Surveilla nce of contracep tion Active 2016 Encounter for surveilla nce of contracep tives, unspecifi ed;Record ed Elsewhere : No Locati on: [facility] So urce: EHR Chron ic: N Practic e ID: [id number] Bill able Time: 10:15:00 AM Not Available [facility] 0 14:31:02 Bleeding [id number] Active 2018 Abnormal vaginal bleeding; Recorded Elsewhere : No Locati on: [facility] So urce: EHR Chron ic: N Practic e ID: [id number] Bill able Time: 10:30:00 AM Not Available [facility] 0 14:31:02 , childbirt h and puerperiu m finding Active 2017 Encntr for suprvsn of normal first preg, second trimester ;Recorded Elsewhere : No Locati on: [facility] So urce: EHR Chron ic: N Practic e ID: [id number] Bill able Time: 03:30:00 PM Not Available [facility] 0 14:31:02 detection examinati on Active 2017 Encounter for test, result positive; Recorded Elsewhere : No Locati on: [facility] So urce: EHR Chron ic: N Practic e ID: [id number] Bill able Time: 09:00:00 AM Not Available [facility] 0 14:31:02 Procedure Active 2018 Enctr srvlnc implantab le subdermal contracep tive;Yemi rded Elsewhere : No Locati on: [facility] So urce: EHR Chron ic: N Practic e ID: [id number] Bill able Time: 10:30:00 AM Not Available [facility] 0 14:31:02 Infection screening Active 2017 Encounter for screening for oth infec/par astc diseases; Recorded Elsewhere : No Locati on: [facility] So urce: EHR Chron ic: N Practic e ID: 0001 Bill able Time: 09:00:00 AM Not Available [facility] 0 14:31:02 test negative [id number] Active 2016 Encounter for test, result negative; Recorded Elsewhere : No Locati on: [facility] So urce: EHR Chron ic: N Practic e ID: 0001 Bill able Time: 10:15:00 AM Not Available [facility] 0 14:31:02 Pelvic and perineal pain [id number] Active 2018 Pelvic pain;Yemi rded Elsewhere : No Locati on: [facility] So urce: EHR Chron ic: N Practic e ID: 0001 Bill able Time: 09:45:00 AM Not Available [facility] 0 14:31:02 Single live [id number] Active 2017 Single live ;Rec orded Elsewhere : No Locati on: [facility] So urce: EHR Chron ic: N Practic e ID: 0001 Bill able Time: 02:30:00 PM Not Available [facility] 0 14:31:02 Body mass index 30+ - obesity 716791768 Active 2017 Body mass index (BMI) 39.0-39.9 , adult;Rec orded Elsewhere : No Locati on: [facility] So urce: EHR Chron ic: N Practic e ID: 0001 Bill able Time: 09:00:00 AM Not Available [facility] 0 14:31:02 Cyst of ovary Active 2018 Ovarian cyst;Yemi rded Elsewhere : No Locati on: [facility] So urce: EHR Chron ic: N Practic e ID: 0001 Bill able Time: 01:45:00 PM Not Available [facility] 0 14:31:[address] Concept Active 2017 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) w/o abn findings; Recorded Elsewhere : No Locati on: [facility] So urce: EHR Chron ic: N Practic e ID: 0001 Bill able Time: 09:00:00 AM Not Available [facility] 0 14:31:03 screening for malformat ion Active 2017 Encounter for screening for malformat ions;Yemi rded Elsewhere : No Locati on: [facility] So urce: EHR Chron ic: N Practic e ID: 0001 Bill able Time: 04:30:00 PM Not Available [facility] 0 14:31:03 , childbirt h and puerperiu m finding Active 2017 Encntr for suprvsn of normal first preg, third trimester ;Recorded Elsewhere : No Locati on: [facility] So urce: EHR Chron ic: N Practic e ID: 0001 Bill able Time: 10:30:00 AM Not Available [facility] 0 14:31:03 Contracep tion care managemen t Active 2018 Encounter for contracep tive managemen t, unspecifi ed;Record ed Elsewhere : No Locati on: [facility] So urce: EHR Chron ic: N Practic e ID: 0001 Bill able Time: 10:30:00 AM Not Available [facility] 0 14:31:03 screening Active 2017 Encounter for screening for nuchal transluce ncy;Recor ded Elsewhere : No Locati on: [facility] So urce: EHR Chron ic: N Practic e ID: 0001 Bill able Time: 11:30:00 AM Not Available [facility] 0 14:31:03 , childbirt h and puerperiu m finding Active 2017 Encounter for supervisi on of normal 1st ;Recorded Elsewhere : No Locati on: [facility] So urce: EHR Chron ic: N Practic e ID: 0001 Bill able Time: 02:45:00 PM Not Available [facility] 0 14:31:03 Insertion of subcutane ous contracep tive Active 2018 Enctr for init prescript ion of implntbl subdermal contracep ;Recorded Elsewhere : No Locati on: [facility] So urce: EHR Chron ic: N Practic e ID: 0001 Bill able Time: 03:00:00 PM Not Available [facility] 0 14:31:03 Gestation period, 30 weeks 13465151 Active 2017 30 weeks gestation of ;Recorded Elsewhere : No Locati on: [facility] So urce: EHR Chron ic: N Practic e ID: 0001 Bill able Time: 02:00:00 PM Not Available [facility] 0 14:31:03 Noninflam matory disorder of vulva 28447470 Active 2018 Noninflam matory disorder of vulva and perineum, unspecifi ed;Record ed Elsewhere : No Locati on: [facility] So urce: EHR Chron ic: N Practic e ID: 0001 Bill able Time: 09:00:00 AM Not Available [facility] 0 14:31:04 Finding of pattern of menstrual cycle 293152095 Active 2016 Irregular interval between menstrual bleeding; Recorded Elsewhere : No Locati on: [facility] So urce: EHR Chron ic: N Practic e ID: 0001 Bill able Time: 10:15:00 AM Not Available [facility] 0 14:31:[address] Concept Active 2015 Encntr for routine child health exam w/o abnormal findings; Recorded Elsewhere : No Locati on: [facility] So urce: EHR Chron ic: N Practic e ID: 0001 Bill able Time: 03:00:00 PM Not Available [facility] 0 14:31:04 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 09424314594 07 Active 2017 Maternal care for (suspecte d) cnsl malform in fetus, unsp;Yemi rded Elsewhere : No Locati on: [facility] So urce: EHR Chron ic: N Practic e ID: 0001 Bill able Time: 02:00:00 PM Not Available [facility] 0 14:31:05 , childbirt h and puerperiu m finding Active 2017 Encntr for suprvsn of normal first preg, first trimester ;Practice ID: 0001 Not Available [facility] 0 14:31:06 Lochia finding Active 2017 Encounter for routine postpartu m follow-up ;Practice ID: 0001 Not Available [facility] 0 14:31:08 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 Procedures Surgical History None recorded. Imaging Results Imaging Date Name Status LastModified by Organization Details LastModified Time 11/20/2024 US, pelvis completed [email or web address] [place] [address], [place], [address], 11/20/2024 17:41:26 11/20/2024 [email or web address] [address], [place], [address], 11/20/2024 17:41:51 11/20/2024 US, pelvis completed [email or web address], [place], [address], 11/20/2024 22:00:24 Procedure Notes None recorded. Medical Equipment None Reported. Allergies Allergen ID Allergen Name Allergen Category Reaction Reaction Severity Criticality Documentation Date Start Date Code Code System Note Provider Name and Address Organization Details Recorded Time 97769 cocoa butter medicatio n rash Not available Not available 09/25/2020 64924 RxNorm React ion: rash; Comme nt: [facility]at [facility]; Not Available [facility] 0 14:14:50 57083 Wellbutri n medicatio n other Not available high 11/12/2024 06011 RxNorm suici zina [facility]ug [facility] Rajani Sims [facility], [place] - [facility] 5 09:21:48 Medications Name Sig Start Date Stop Date Status Note LastModified by Organization Details LastModified Time cyclobenz aprine 10 mg tablet 11/11 completed Not Available Not Available Not Available sulfameth oxazole 400 mg-trimet hoprim 80 mg tablet 11/11 completed Not Available Not Available Not Available hydrocodo ne 5 mg-acetam inophen 325 mg tablet take 1-2 tablet by oral route every 6 hours as needed for pain 11/11 completed Prescrib ed Elsewher e: No Locat ion: [facility] odify By: [email or web address] Encounte r DateTime : 09/13/20 09:45:00 AM Not Available Not Available Not Available sertralin e 100 mg tablet Take 1 tablet every day by oral route for 30 days. 2024 active Not Available Not Available Not Avai lable acetamino phen 500 mg tablet 11/11 completed Not Available Not Available Not Available methocarb maeve 750 mg tablet 11/11 completed Not Available Not Available Not Available estradiol 2 mg tablet take 1 tablet by oral route every day 09/13 completed Prescrib ed Elsewher e: No Locat ion: [facility] odify By: [email or web address] Sin r DateTime : 08/16/20 19 10:30:00 AM Not Available Not Available Not Available ergocalci ferol (vitamin D2) 1,250 mcg (50,000 unit) capsule Take 1 capsule every week by oral route. active Not Available Not Available No t Available methylpre dnisolone 4 mg tablets in a dose pack 11/11 completed Not Available Not Available Not Available naproxen 500 mg tablet 11/11 completed Not Available Not Available Not Available Zithromax 500 mg tablet take 2 tablet by oral route once 06/29 completed Prescrib ed Elsewher e: No Locat ion: [facility] odify By: [email or web address] Sin r DateTime : 02/03/20 18 12:56:53 PM Not Available Not Available Not Available Wellbutri n XL 150 mg 24 hr tablet, extended release Take 1 tablet every day by oral route. 2024 active Not Available Not Available Not Avai lable Nexplanon 68 mg subdermal implant insert 1 not specifie d by intramus cular route every time for 3 years 11/11 completed Prescrib ed Elsewher e: No^Stop Date: 20220504 Locatio n: [facility] odify By: [email or web address] Encount er DateTime : 05/06/20 03:00:00 PM Not Available Not Available Not Available SPRING INTERN-PNV-DH A 28 mg iron-1 mg-200 mg capsule take 1 capsule by oral route every day 10/15 completed Prescrib ed Elsewher e: No Locat ion: [facility] odify By: los larsen DateTime : 03/08/20 11:30:00 AM Not Available Not Available Not Available Zepbound 5 mg/0.5 mL subcutane ous pen injector 11/11 completed Not Available Not Available Not Available Zepbound 2.5 mg/0.5 mL subcutane ous pen injector 11/11 completed Not Available Not Available Not Available Vitals Date Recorded Body height Body mass index (BMI) Body weight Systolic blood pressure Diastolic blood pressure Provider Name and Address Organization Details Last Updated DateTime 11/11/2024 152.4 cm 49.4 kg/m2 986930.8 7 g 104 mm[Hg] 67 mm[Hg] Rajani Sims [facility] 12:31:25 Date Recorded Body height Body mass index (BMI) Body weight Systolic blood pressure Diastolic blood pressure Provider Name and Address Organization Details Last Updated DateTime 11/27/2024 152.4 cm 49 kg/m2 163729.6 8 g 97 mm[Hg] 63 mm[Hg] Rajani Sims [facility] 12:55:35 Social History Question Answer Notes LastModified by Organizat ion Details LastModified Time Tobacco Smoking Status Current Every Day Smoker Rajani parsons [facility] 11/11/2024 12:36:24 What Is Your Level Of Alcohol Consumption? Occasional Information not available 11/11/2024 Are You Blind Or Do You Have Difficulty Seeing? No Information not available 11/11/2024 What Is Your Level Of Caffeine Consumption? Moderate Information not available 11/11/2024 In The 14 Days Before Symptom Onset, Have You Had Close Contact With A Laboratory-confir med COVID-19 While That Case Was Ill? No Information not available 11/11/2024 In The 14 Days Before Symptom Onset, Have You Had Close Contact With A Person Who Is Under Investigation For COVID-19 While That Person Was Ill? No Information not available 11/11/2024 Have You Been To An Area Known To Be High Risk For COVID-19? No Information not available 11/11/2024 Are You Deaf Or Do You Have Serious Difficulty Hearing? No Information not available 11/11/2024 What Is The Highest Grade Or Level Of School You Have Completed Or The Highest Degree You Have Received? [id number] Information not available 11/11/2024 Are There Any Guns Present In Your Home? No Information not available 11/11/2024 Do You Use Protection During Sex? No Information not available 11/11/2024 Are You Sexually Active? Yes Information not available 11/11/2024 Do You Have Smoke And Carbon Monoxide Detectors In Your Home? Yes Information not available 11/11/2024 Do You Use Any Illicit Or Recreational Drugs? No Information not available 11/11/2024 Do You Use Sunscreen Routinely? Yes Information not available 11/11/2024 Sex: Unknown Functional Status Question Answer Note LastModified by Organizat ion Details LastModified Time Do you have difficulty walking or climbing stairs? No Information not available 11/11/2024 Are you able to walk? YESWOREST Information not available 11/11/2024 Are you able to care for yourself? Yes Information not available 11/11/2024 Do you have difficulty dressing or bathing? No Information not available 11/11/2024 Mental Status None recorded. Family History Relationship Description Onset Age of this Age Resolved Age Notes LastModified by Organization Details LastModified Time Father Asthma Not available 12:43:24 Father Mental disorder Not available 2024 12:45:08 Paternal Grandmother Asthma Not available 2024 12:43:24 Paternal Grandmother Mental disorder Not available 2024 12:45:08 Paternal Grandfather Asthma Not available 2024 12:43:24 Paternal Grandfather Mental disorder Not available 2024 12:45:08 Sister Asthma Not available 12:43:24 Sister Mental disorder Not available 2024 12:45:08 Maternal Grandfather Malignant tumor of colon Not available 2024 12:43:36 Maternal Grandfather Hypercholest erolemia Not available 2024 12:44:00 Maternal Grandfather Mental disorder Not available 2024 12:45:08 Mother Diabetes mellitus Not available 2024 12:43:46 Mother Mental disorder Not available 2024 12:45:08 Mother Disorder of thyroid gland Not available 2024 12:45:17 Brother Mental disorder Not available 2024 12:45:08 Maternal Grandmother Mental disorder Not available 2024 12:45:08 Maternal Grandmother Malignant neoplasm of uterus Not available 2024 12:45:30 Notes:Father: Cancer, colon, Asthma, Genetic disease, Thyroid disease, Hyperlipidemia, Bipolar disorder, Cancer, lung, Heart disease Mother: Heart disease, Hypertension, Cancer, ovarian, Diabetes mellitus type 2, Hyperlipidemia, Thyroid disease, Bipolar disorder, Cancer, lung Medical History Condition Response Allergies (Food, seasonal, environmental ) N Other N Drug/Latex Allergies/Reactions N Breast Cancer N Blood Transfusion N Lung Disease N Dermatologic Disorders N Defects or Inherited Disease N Breast Problem N Gestational Diabetes N Hematologic disorders N Anesthesia Complications N History of STI N Deep Vein Thrombosis N Polycystic ovary syndrome Y Anxiety Disorder N Autoimmune disease N Arthritis N Polyps N Infertility N History of abnormal pap N Acid Reflux (GERD) N Cancer N Varicosities N Stroke N Neurologic/Epilepsy N Endometriosis N High Cholesterol N Headaches N Fibromyalgia N Kidney Disease N Heart Problems N Thyroid Problems N Kidney or Bladder Problems N GI Problems N Eating Disorder N Anemia Y Art (IVF or FET) N Psychiatric Illness Y Ovarian Cancer N Diabetes N Pulmonary (TB, Asthma) N Hepatitis/Liver Disease N No Past Medical History N Eczema N Urinary Tract Infection N Abuse/Domestic Violence N Asthma N Trauma/Violence N Depression/ depression N Heart Disease N Pre-Eclampsia N Hypertension N Osteoporosis N Thrombophilias N Gynecological History Statement/Question Response Abnormal Pap N Flow Heavy Date of LMP 11/17/2024 On BCP's at Conception? N Was last menstrual period normal Y STIs/STDs Y HPV Vaccine N Duration of Flow (days) 5 Current Control Method Seeking Pre gnancy Age at First Child 23 Are cycles usually normal Y Frequency of Cycle (Q days) 30 Sexually Active? Y Menses Monthly Y Age of first menstrual cycle 13 Sexual Problems? 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 Patient will come back in a year unless there are new symptoms. Suggest Calcium with Vitamin D if not eating in diet. Patient advised to get annual flu shot. Recommend yearly physicals and preform monthly breast exams. Genetic testing is available for patients with family history of cancer. Engage in safe sexual practices, use condoms. Encouraged to have daily exercise. Avoid tobacco and illicit drugs, moderation of alcohol. If BMI greater than 25 dietary consult advised. If you have any questions please call or email. Pap smear-Done laboratory evaluation - today [id number] Fiona Paula [place] [address] [address] 11/20/2024 12:33:24 11/20/2024 13:37:33 Abnormal uterine bleeding 3998346327 9100 N93.9 R10.2 [id number] Austin Duran MD [place] [address] [address] 11/27/2024 12:15:33 11/27/2024 13:58:12 Vitamin D deficiency 40547069 E55.9 Abnormal u terine bleeding 4437481023 9100 N93.9 R10.2 29-year-ol d female with irregular bleeding. She was evaluated. She had normal labs and a normal ultrasound . She is trying to get . She appears to ovulate and have a predictabl e Menses. She is trying to get . She is tracking her menses. She has coming on it a predictabl e time. She is ovulating at this time. They are trying to get . She will return for care. We reviewed her lab results and her ultrasound results today. Health Concerns Section Related Observation LastModified by Organization Detai ls LastModified Time None Recorded Concern Status LastModified by Organization Details LastModified Time None Recorded Advance Directives Directive None Recorded Payers Encounter Date Sequence Insurance Name Policy Number Policy Mckoy Covered Member ID Mckoy Member ID Guarantor Name 11/11/2024 1 [facility] ON OR AFTER 04/08/21 (MEDICAID REPLACEMENT - HMO) Aurora Pierce [id number] Aurora Pierce 11/20/2024 1 [facility] ON OR AFTER 04/08/21 (MEDICAID REPLACEMENT - HMO) Aurora Pierce [id number] Aurora Pierce 11/27/2024 1 [facility] ON OR AFTER 04/08/21 (MEDICAID REPLACEMENT - HMO) Aurora Pierce [id number] Aurora Pierce Notes Date Note Type Note Provider Name and Address Organization Details Recorded Time 11/11/2024 text/html Annual GYNReport ed bypatient.History: [facility] Menstrual cycle:Menorrhagia; Irregular cycle intervals Urinary symptoms:No hematuria; No incontinence Vulva:No genital lesion Vagina:Normal vaginal discharge Breast:No breast pain; No breast lump Sexual complaints:No sexual complaints; No pain during intercourse Menopausal Symptoms:No menopausal symptoms Psychological symptoms:No depression; No anxiety; Txed Preventive measures:Encourage self breast examination; Encourage regular exercise Austin Duran MD [address], [place], [address], [facility] 11/11/2024 23:59:06 11/27/2024 text/html 29-year-old fema le with irregular bleeding. She was evaluated. She had normal labs and a normal ultrasound. She is trying to get . She appears to ovulate and have a predictable Menses. She is trying to get . She is tracking her menses. She has coming on it a predictable time. She is ovulating at this time. They are trying to get . She will return for care. We reviewed her lab results and her ultrasound results today. Austin Duran MD [address], [place], [address], [facility] 11/27/2024 13:13:27 OBGyn Episode Ob Episode Information Episode Created Date Number of Fetuses Patient Bloodtype Patient rh Status Prepregnancy Weight lbs Domestic Partner Domestic Partner Phone Father Name Cutter Operator Status 11/11/19 25 1 CLOSED Fetus Data First Name Last Name Admitted to NICU Weight (g) Sex Living Outcome Pediatric Complications Fetus ID Race Codes Race Delivery Type 2125.98 5704 F Prematur [place] [id number] Vaginal Delivery Donaldo Calculation Initial Donaldo Date Initial Exam Date Initial Exam Provider Initial Ultrasound Date Last Menstrual Period Date Ultra Sound Weeks Gestation 0 Eighteen To Twenty Week Donaldo Update Ultra Sound Date Fundal Height At Umbil Quickening Date Ultra Sound Latest Weeks Gestation Final Donaldo Confirmed By Final Donaldo Confirmed Date Final Donaldo Date Ultra Sound Latest Days Gestation 0 0 Menstrual History Last Menstrual Date Menses Monthly On Bcp Conception Prior Menses Frequency Hcg Plus Date Menarche Onset Age Delivery Information Delivery Date Delivery Type Labor Anesthesia Weeks Gestation Incision Type Labor Labor Length Hrs Delivered By Post Complications Tubal Sterilization Discharge Date Comments 8 down syndrome Discharge Information Feeding Method Contraceptive Method Maternal HG B and HCT Levels
[2025-01-25 10:08] LABS: Basophils Absolute Auto 0.1 K/mm3 (0.0-0.1); Basophils Percent Auto 0.9 % (0.2-1.2); Eosinophils Percent Auto 0.5 % (0-4.4); Hematocrit 38.3 % (37.0-47.0); Hemoglobin 12.4 g/dL (12.0-15.0); Immature Granulocyte Absolute 0.02 K/mm3 (0.00-0.031); Immature Granulocyte Percent A 0.4 % (0-0.5); Lymphocytes Absolute Auto 1.88 K/mm3 (0.9-3.2); Lymphocytes Percent Auto 34.2 % (18.3-44.2); Mean Corpuscular HGB Conc 32.4 g/dl (32-36); Mean Corpuscular Hemoglobin 30.6 pg (26-34); Mean Corpuscular Volume 94.6 fl (80-100); Mean Platelet Volume 10.1 fl (7.4-10.4); Monocytes Absolute Auto 0.4 K/mm3 (0.1-0.6); Neutrophils Absolute Auto 3.1 K/mm3 (1.3-6.7); Platelet Count Result 225 k/mm3 (150-375); Red Blood Count 4.05 M/mm3 (4.2-5.4); Red Cell Distribution Width 11.6 % (11.5-14.5); White Blood Count 5.5 K/mm3 (4.5-10.0)
[2025-01-25 10:22] LABS: Alanine Aminotransferase 16 U/L (6-35); Albumin Level 4.3 g/dL (3.5-5.1); Alkaline Phosphatase 69 U/L (38-126); Anion Gap 10 mmol/L (4-12); Aspartate Amino Transferase 30 U/L (14-36); Bilirubin,Total 0.6 mg/dL (0.2-1.3); Blood Urea Nitrogen 15 mg/dL (7-17); Calcium 8.9 mg/dL (8.4-10.2); Carbon Dioxide 26 mmol/L (22-30); Chloride 105 mmol/L (98-107); Cholesterol 175 mg/dL (0-200); Estimated Glomerular Filt Rate > 60; Glucose 100 mg/dL (65-110); HDL Direct 45 mg/dL; Potassium 4.2 mmol/L (3.4-5.0); Sodium 141 mmol/L (137-145); Triglycerides 94 mg/dL (<150)
[2025-01-25 10:33] LABS: LDL Cholesterol Direct 97 mg/dL
[2025-01-25 10:45] LABS: Free T4 Free Thyroxine 0.74 ng/dL (0.78-2.19); Vitamin D 25 Hydroxy 36.8 ng/mL
== END 2025-01-25 09:39 | disposition home or self-care (01) ==
PROVIDERS: PCP Emergency Medicine
DX: F31.81 Bipolar II disorder (principal)
CPT/HCPCS: 36415; 80053; 80061; 82306; 82607; 83036; 84439; 84443; 85025

== ENCOUNTER 2025-06-05 12:16 | Emergency (ER) | payer OTHER, SELFPAY ==
[2025-06-05 12:32] VITALS: BP 134/82; PULSE 75; RESP 16; TEMP 36.6; O2SAT 100
--- NOTE | 2025-06-05 12:45 | ED_ITS ---
HPI - URI/Sore Throat General Chief Complaint: Upper Respiratory Infection Stated Complaint: SORE THROAT/NAUSEA/HEADACHE/STUFFY NOSE History of Present Illness HPI Narrative: 29 y/o female presented for c/o sore throat, headache, nasal congestion and drainage, and nausea. Onset 2 days. Denies sob , wheezing, n/v/d/f/c. Taking Motrin and Tylenol. Related Data Home Medications ?Medication ?Instructions ?Recorded ?Confirmed ?Last Taken ?Type aripiprazole 10 mg tablet mg 06/05/25 Unknown History Held on 06/05/25. Instructions: Patient no longer taking cariprazine 3 mg capsule (Vraylar) mg 06/05/25 Unknow n History duloxetine 30 mg capsule,delayed mg PO 06/05/25 Unkno wn History release ergocalciferol (vitamin D2) 1,250 06/05/25 Unknown H istory mcg (50,000 unit) capsule hydroxyzine HCl 10 mg tablet mg 06/05/25 Unknown Hist ory hydroxyzine HCl 25 mg tablet mg 06/05/25 Unknown Hist ory Held on 06/05/25. Instructions: Patient no longer taking Allergies Allergy/AdvReac Type Severity Reaction Status Date / Time gabapentin Allergy Rash Verified 06/05/25 12:34 bupropion AdvReac Other Verified 06/05/25 12:34 Review of Systems Review of Systems: CONSTITUTIONAL: reports body aches, Denies fever, chills, or sweats. EYES: Denies visual changes, redness, or discharge. ENT: reports sore throat rhinorrhea CARDIOVASCULAR: Denies chest pain, palpitations, or edema. RESPIRATORY: Denies dyspnea. GASTROINTESTINAL: Denies abdominal pain, nausea, vomiting, or diarrhea. SKIN: Denies rash NEUROLOGIC: reports headache PMFSH Past Medical History Medical History Degenerative disc disease No active medical problems Surgical History Surgical History No pertinent past surgical history Social History Social History Smoking status: Current every day smoker Exam Narrative: GENERAL: Ill-appearing, nontoxic no acute distress. EYES: conjunctivae clear ENT: Mucous membranes moist. TMs pearly salgado with normal light reflex bilaterally; no tragal tenderness. Oropharynx not erythematous without lesions. Tonsils enlarged 1+and without exudate. No drooling, no hoarseness, no trismus, uvula midline. No tripod positioning, hot potato voice, or soft palate swelling. NECK: Supple. No lymphadenopathy CHEST: Clear to auscultation, breath sounds equal. No respiratory distress, speaks in full sentences. HEART: Regular rate and rhythm. No murmur heard. SKIN: Warm, dry, no rash. NEURO: Alert and oriented x3. Course Course Emergency Course: Patient is aware of diagnosis, understands and agrees to treatment plan. Anticipatory guidance given. Patient agrees to follow-up as directed and is aware of reasons to seek care at the emergency department. Portions of this record may have been created with voice recognition software Level of Care: Express Care Visit Vital Signs Vital signs: Vital Signs Temperature 97.9 F 06/05/25 12:32 Pulse Rate 75 06/05/25 12:32 Respiratory Rate 16 06/05/25 12:32 Blood Pressure 134/82 06/05/25 12:32 Pulse Oximetry 100 06/05/25 12:32 Temperature 97.9 F 06/05/25 12:32 Pulse Rate 75 06/05/25 12:32 Respiratory Rate 16 06/05/25 12:32 Blood Pressure 134/82 06/05/25 12:32 Pulse Oximetry 100 06/05/25 12:32 MDM - URI/Sore Throat MDM Narrative Medical decision making narrative: Discussed physical exam findings, neg flu covid and strep. Advised supportive measures and signs/symptoms to go to the ER. Pt is appropriate for outpt treatment and f/u. Differential Diagnosis Differential diagnosis: Likely upper respiratory infection, otitis media, sinusitis, viral infection, bronchitis, influenza and pharyngitis Lab Data Labs: Lab Results 06/05/25 Range/Units 12:56 POC Influenza A Ag Negative (Negative) POC Influenza B Ag Negative (Negative) POC SARS CoV-2 Ag Negative (Negative) POC Grp A Strep Screen Negative (Negative) Discharge Plan Discharge Clinical Impression: Upper respiratory infection Patient Disposition: Home Condition: Stable Instructions: Antibiotic Form, Upper Respiratory Infection (ED) Additional Instructions: Flu and COVID negative Rapid strep swab was negative today You will be notified in a few days if the culture comes back positive for strep, and appropriate antibiotics will be called in at that time. if symptoms are due to a viral illness, it is not treated with antibiotics. Viral symptoms can be present for up to 10-14 days. Recommendations: Flonase spray and Zyrtec for sinus congestion Cough syrup may cause drowsiness; avoid driving or take it at night time. Tylenol every 8 hours as needed for pain/fever Soft foods, cool liquids, warm tea. Gargle with warm saltwater twice a day. Chloraseptic spray and throat lozenges. Rest and stay hydrated. --Follow up with your PCP --Go to the ER immediately if you cannot swallow your saliva, trouble breathing/wheezing, throat swelling, pain is persistent and severe Patient Language: Tamazight Prescriptions: No Action hydroxyzine HCl 25 mg tablet ergocalciferol (vitamin D2) 1,250 mcg (50,000 unit) capsule hydroxyzine HCl 10 mg tablet aripiprazole 10 mg tablet duloxetine 30 mg capsule,delayed release(DR/EC) PO Vraylar 3 mg capsule ibuprofen 600 mg tablet 600 mg PO Q6H PRN (Reason: pain) Qty: 30 0RF acetaminophen [Tylenol Extra Strength] 500 mg tablet 1,000 mg PO Q6H PRN (Reason: pain) Qty: 30 0RF naproxen 500 mg tablet 500 mg PO BID Qty: 20 0RF Follow-up/Referrals: PHYSICIAN,BRAIDING MACHINE TENDER [Primary Care Provider, Internal Medicine] Time of Disposition: 13:03
[2025-06-05 12:58] LABS: EDCOVIDSCREEN Negative (Negative); EDINFLUASCREEN Negative (Negative); EDINFLUBSCREEN Negative (Negative); EDSTREPNEGPOS1 Negative (Negative)
== END 2025-06-05 13:10 | disposition home or self-care (01) ==
PROVIDERS: Emergency Provider Nurse Practitioner Family
DX: J06.9 Acute upper respiratory infection, unspecified (principal); Z20.822 Contact with and (suspected) exposure to COVID-19
CPT/HCPCS: 87081; 87426; 87804; 87880; 99213; G0463

== ENCOUNTER 2025-07-24 09:15 | Emergency (ER) | payer OTHER, SELFPAY ==
--- NOTE | ~2025-07-24 | CT_ITS ---
EXAMINATION: CT lumbar spine wo con COMPARISON: None HISTORY: back pain, radiation down right leg TECHNIQUE: Axial images were obtained through the spine without IV contrast. Coronal, sagittal reconstruction images were obtained from the axial views. CT scan performed using dose optimization techniques including the following automated exposure control; adjustment of mA and/or kV; use of iterative reconstruction technique. Automatic exposure control was used to reduce radiation dose. Permanent radiation dose record is archived to PACS. FINDINGS: The vertebral heights are intact. No fracture or subluxation. There is severe loss of disc height at T12-L1 with severe canal and foraminal stenosis, MRI is suggested to further evaluate as an outpatient. Soft tissues unremarkable. Impression: No acute abnormality. Reviewed, dictated and finalized at location P. Impression: No acute abnormality.
[2025-07-24 09:29] VITALS: BP 127/64; PULSE 86; RESP 16; TEMP 36.8; O2SAT 100
--- OUTSIDE RECORDS SUMMARY | 2025-07-24 10:03 | XMS_ITS | Patient Health Record ---
Author Organization [facility] Address [address] [place] [address] Care Team Providers Care Rental Sales Agent Name Role Phone Tamiko Beatty Primary Care Provider [phone] Allergies Allergen (clinical drug ingredient) Drug/Non Drug Allergy documented on EMR Reaction Allergy Type Onset Date Status Wellbutrin Unknown Drug Allergy Active gabapentin Gabapentin hives Drug Allergy Activ e Results Component Value Reference Range Notes Hemoglobin A1c* Reviewed date:03/06/2025 11:57:56 AM Interpretation: Performing Lab: Notes/Report: Lipid Panel* Reviewed date:03/06/2025 11:58:12 AM Interpretation: Performing Lab: Notes/Report: TSH+Free T4* Reviewed date:03/06/2025 11:56:42 AM Interpretation: Performing Lab: Notes/Report: Vitamin B12* Reviewed date:03/06/2025 11:56:25 AM Interpretation: Performing Lab: Notes/Report: Vitamin D, 25-Hydroxy* Reviewed date:03/06/2025 11:58:30 AM Interpretation: Performing Lab: Notes/Report: CMP 14 Comprehensive Metabol ic Panel* Reviewed date:03/06/2025 11:57:41 AM Interpretation: Performing Lab: Notes/Report: CBC With Differential/Platel et* Reviewed date:03/06/2025 11:57:28 AM Interpretation: Performing Lab: Notes/Report: Reason For Referral Reason PHQ9 was high and loja d passing SI after she had stopped her medication. Was able to work through feelings with and after restarting meds, this resolved and moods improving. Diagnosis 1 Bipolar 2 disorder, major depressive episode (F31.81) Referral Organization [facility] Referring Provider First Name Tamiko Referring Provider Last Name Beatty Referring Provider Speciality Psychiatry Referred Provider Specialty Behavioral H [facility] Clinical Notes Mary Nina 06/24/2025 01:49:16 PM >Call unable to be completed at this time. Referral Priority Routine Medications Medication SIG (Take, Route, Frequency, Duration) Notes Start Date End Date Status Vraylar 4.5 MG 1 capsule Orally Onc e a day; Duration: 30 days 06/05/2025 Active Vitamin D (Ergocalciferol) 1.25 MG (87550 UT) 1 capsule Oral once a week; Duration: 30 days Active DULoxetine HCl 30 MG 1 capsule Orally On ce a day; Duration: 30 days 03/04/2025 Active hydrOXYzine HCl 10 MG 1 tablet as needed Orally twice a day; Duration: 30 days As needed 01/10/2025 Active Social History Tobacco Use: Social History Observation Description Date Details (start date - stop date) Never Smoker NA - NA Sex Assigned At : Social History Observation Description Sex Assigned At Female PRAPARE Question Answer Notes Date Completed/Updated: 02/03/2025 What is your current housing situation? I have h ousing Are you worried about losing your housing? No What is the highest level of school that you have finished? 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 Check all that apply I do not have problems meeting my needs Has lack of transportation k ept you from medical appointments, meetings, work or from getting things needed for daily living? No How often do you see or talk to people that you care about and feel close to? (For example: talking to friends on the phone, visiting friends or family, going to yazidism or club meetings) More than 5 times a week How stressed are you? Stress is when someone feels tense, nervous, anxious, or can\t sleep at night because their mind is troubled Very much In the past year have you sp ent more than 2 nights in a row in a assisted, longterm, mcfp center, or juvenile correctional facility? No Do you feel physically and e motionally safe where you currently live? Yes In the past year, have you b een afraid of your partner or ex-partner? No PRAPARE Score: 6 Tobacco Control (Standard) Question Answer Notes Tobacco use: Nonsmoker Problems Problem Type SNOMED Code ICD Code Onset Dates Problem Status W/U Status Risk Notes Problem Posttraumatic stress disorder (93325822) PTSD (post-traumati c stress disorder) (F43.10) Active confirmed Problem Overweight (047786366) Over weight (E66.3) Active confirmed Problem Bipolar II disorder (69004300) Bipolar 2 disorder, major depressive episode (F31.81) Active confirmed Vital Signs Heart Rate 96 /min 05/02/2025 Temperature 98.5 degrees Fahrenheit 01/10/2025 Respiratory Rate 16 /min 02/06/2025 Blood pressure diastolic 72 mm Hg 05/02/2025 Oximetry 98 % 05/02/2025 Height 61 in 05/02/2025 Blood pressure systolic 126 mm Hg 05/02/2025 Weight 251.2 lbs 05/02/2025 BMI 47.46 kg/m2 05/02/2025 Encounters Encounter Location Date Provider Diagnosis [address] [place] [address] 01/10/2025 Tamiko Beatty Bipolar 2 disorder, major depressive episode F31.81 ; PTSD (post-traumatic stress disorder) F43.10 ; Cannabis use disorder F12.90 and Over weight E66.3 [place] [place] [address] 02/06/2025 Tamiko Beatty Over weight E66.3 and Bipolar 2 disorder, major depressive episode F31.81 [address] [place] [address] 03/04/2025 Tamiko Beatty Bipolar 2 disorder, major depressive episode F31.81 and PTSD (post-traumatic stress disorder) F43.10 [address] [place] [address] 04/01/2025 Tamiko Beatty Bipolar 2 disorder, major depressive episode F31.81 and PTSD (post-traumatic stress disorder) F43.[address] [place] [address] 05/02/2025 Tamiko Beatty Bipolar 2 disorder, major depressive episode F31.81 and PTSD (post-traumatic stress disorder) F43.10 [facility] [address] [facility] [address] 06/05/2025 Tamiko Beatty Bipolar 2 disorder, major depressive episode F31.81 and PTSD (post-traumatic stress disorder) F43.[address] [place] [address] 01/27/2025 Tamiko Beatty [address] [address] 02/04/2025 Tamiko Beatty [facility] [address] [place] [address] 02/26/2025 Tamiko Beatty [address] [place] [address] 03/18/2025 [address] Beatty [address] [address] 04/07/2025 Tamiko Beatty Assessments Encounter Date Diagnosis (ICD Code) Assessment Notes Treatment Notes Treatment Clinical Notes Section Notes 01/10/2025 PTSD (post-traumatic stress disorder) (ICD-10 - F43.10) 01/10/2025 Bipolar 2 disorder, major depressive episode (ICD-10 - F31.81) 02/06/2025 Over weight (ICD-10 - E66.3) Increase Abilify to help with mood instability. Continue services as scheduled. Labs completed recently. May self-administer medications or be administered own oral medications per [facility] protocols. Provided informed consent with understanding of side effects, adverse effects, risks and benefits as well as alternative treatments as previously discussed and with the above recommended medications & other aspects of the treatment program. Agrees to return sooner if symptoms worsen or suicidal or homicidal ideations occur. 03/04/2025 Bipolar 2 disorder, major depressive episode (ICD-10 - F31.81) Add Cymbalta to help with depression and anxiety. Discussed changing Abilify, but wanted to keep it where it is at currently since she feels it is helping. Continue services as scheduled. Labs completed recently. May self-administer medications or be administered own oral medications per [facility] protocols. Provided informed consent with understanding of side effects, adverse effects, risks and benefits as well as alternative treatments as previously discussed and with the above recommended medications & other aspects of the treatment program. Agrees to return sooner if symptoms worsen or suicidal or homicidal ideations occur. 04/01/2025 Bipolar 2 disorder, major depressive episode (ICD-10 - F31.81) 05/02/2025 Bipolar 2 disorder, major depressive episode (ICD-10 - F31.81) Increase Vraylar to help with mood instability. Continue services as scheduled. Labs completed recently. May self-administer medications or be administered own oral medications per [facility] protocols. Provided informed consent with understanding of side effects, adverse effects, risks and benefits as well as alternative treatments as previously discussed and with the above recommended medications & other aspects of the treatment program. Agrees to return sooner if symptoms worsen or suicidal or homicidal ideations occur. 06/05/2025 Bipolar 2 disorder, major depressive episode (ICD-10 - F31.81) Increase Vraylar to help with mood instability. Continue services as scheduled. Labs completed recently. May self-administer medications or be administered own oral medications per [facility] protocols. Provided informed consent with understanding of side effects, adverse effects, risks and benefits as well as alternative treatments as previously discussed and with the above recommended medications & other aspects of the treatment program. Agrees to return sooner if symptoms worsen or suicidal or homicidal ideations occur. CancelRx Response got Denied on 2025-06-05 15:45:14 for 'Vraylar 3 MG Capsule'Pharmacy Notes: Unable to Cancel Rx. Please contact Pharmacy 06/05/2025 PTSD (post-traumatic stress disorder) (ICD-10 - F43.10) 05/02/2025 PTSD (post-traumatic stress disorder) (ICD-10 - F43.10) 04/01/2025 PTSD (post-traumatic stress disorder) (ICD-10 - F43.10) 02/06/2025 Bipolar 2 disorder, major depressive episode (ICD-10 - F31.81) 03/04/2025 PTSD (post-traumatic stress disorder) (ICD-10 - F43.10) 01/10/2025 Cannabis use disorder (ICD-10 - F12.90) 01/10/2025 Over weight (ICD-10 - E66.3) 04/01/2025 Other Taper off Abilify and start Vraylar to help with mood stability and due to side effects. Continue services as scheduled. Labs completed recently. May self-administer medications or be administered own oral medications per [facility] protocols. Provided informed consent with understanding of side effects, adverse effects, risks and benefits as well as alternative treatments as previously discussed and with the above recommended medications & other aspects of the treatment program. Agrees to return sooner if symptoms worsen or suicidal or homicidal ideations occur. Plan Of Treatment Next Appt Details Provider Name:Tamikolo andujar, 07/24/2025 02:40:00 PM, [address], [place], [address], Insurance Providers Payer Name Payer Address Payer Phone Subscriber Number Group Number Insured Name Patient Relationship to Insured Coverage Start Date Coverage End Date [facility] Attn Claims Department [address] [place] [address] [id number] Aurora Pierce Self - patient is the insured 5 [facility] [employer] [facility] Claims Department [address] [place] [address] [id number] Aurora Pierce Self - patient is the insured 5 Medical (General) History Medical History History ICD Code Degenerative disc disease Hospitalization History Reason Date(Month/Year) Pediatric Mental Health x3 Child
--- NOTE | 2025-07-24 10:49 | ED_ITS ---
HPI - Back Pain/Injury General Chief Complaint: Back Pain/Injury Stated Complaint: lower back pain, wants covid test Time Seen by Provider: 07/24/25 09:56 Source: patient Mode of arrival: ambulatory Limitations: no limitations History of Present Illness HPI Narrative: This is a 30-year-old female that presents emergency department with 2 complaints. First reporting cold symptoms ongoing over the last couple of days. Reports congestion, sore throat, body aches, headaches. Second reporting flare of chronic low back pain. Reports radiation to the right leg. Intermittent tingling in the legs. Denies fever, saddle anesthesia, bowel/bladder incontinence. Related Data Home Medications ?Medication ?Instructions ?Recorded ?Confirmed ?Last Taken ?Type aripiprazole 10 mg tablet mg 06/05/25 Unknown History Held on 06/05/25. Instructions: Patient no longer taking cariprazine 3 mg capsule (Vraylar) mg 06/05/25 Unknow n History duloxetine 30 mg capsule,delayed mg PO 06/05/25 Unkno wn History release ergocalciferol (vitamin D2) 1,250 06/05/25 Unknown H istory mcg (50,000 unit) capsule hydroxyzine HCl 10 mg tablet mg 06/05/25 Unknown Hist ory hydroxyzine HCl 25 mg tablet mg 06/05/25 Unknown Hist ory Held on 06/05/25. Instructions: Patient no longer taking Allergies Allergy/AdvReac Type Severity Reaction Status Date / Time gabapentin Allergy Rash Verified 07/24/25 09:16 bupropion AdvReac Other Verified 07/24/25 09:16 Review of Systems Review of Systems: All systems reviewed & are unremarkable except as noted in HPI and below PMFSH Past Medical History Medical History (Updated 07/24/25 @ 12:44 by Rae Ahuja PA-C) Degenerative disc disease Surgical History Surgical History No pertinent past surgical history Social History Social History Smoking status: Current every day smoker Exam Narrative: GENERAL: Well-appearing, well-nourished, and in no acute distress. HEAD: Normocephalic, atraumatic. EYES: EOMI. ENT: Nares clear, no rhinorrhea or epistaxis. Mucous membranes moist. Oropharynx without tonsillar hypertrophy exudate or other lesions. Bilateral TMs pearly salgado non-bulging NECK: Supple. No adenopathy or masses. CHEST: Clear to auscultation. No respiratory distress. No wheezes rales or rhonchi HEART: Regular rate and rhythm. No murmur heard. Normal peripheral pulses. EXTREMITIES: Normal range of motion. No edema. Strength equal in bilateral lower extremities (5/5) SKIN: Warm, dry, no rash. NEURO: No focal deficits. Alert and oriented x3. PSYCH: Normal mood and affect Course Vital Signs Vital signs: Vital Signs Temperature 98.3 F 07/24/25 09:29 Pulse Rate 86 07/24/25 09:29 Respiratory Rate 16 07/24/25 09:29 Blood Pressure 127/64 07/24/25 09:29 Pulse Oximetry 100 07/24/25 09:29 Temperature 98.3 F 07/24/25 09:29 Pulse Rate 78 07/24/25 12:57 Respiratory Rate 17 07/24/25 12:57 Blood Pressure 130/67 07/24/25 12:57 Pulse Oximetry 98 07/24/25 12:57 MDM - Back Pain/Injury MDM Narrative Medical decision making narrative: Patient presents emergency department with 2 complaints. Reporting acute on chronic low back pain, cold symptoms. She is afebrile and nontoxic appearing. Her vitals are stable. COVID test is positive. CT lumbar spine without acute findings. Patient updated on her workup and agrees with plan of care. Instructed on further care a viral infection. Reports she has follow up with her spine doctor soon. Given prescription for muscle relaxer, steroid. She was given warnings to return to the ER Differential Diagnosis Differential diagnosis: Likely lumbar radiculopathy, strain of lumbar region and other (COVID, influenza) Lab Data Attestation: I reviewed the patient's lab results. Labs: Lab Results 07/24/25 07/24/25 Range/Units 11:38 11:43 POC Urine HCG, Qual Negative (Negative) Influenza A (RT-PCR) Negative (Negative) Influenza B (RT-PCR) Negative (Negative) RSV (RT-PCR) Negative (Negative) SARS-CoV-2 RNA (RT-PCR) Positive A (Negative) Group A Strep (PCR) Not detected (Negative) Imaging Data Radiologist's impression: ITS Impressions Lumbar Spine CT 07/24/25 12:14 Impression: No acute abnormality. Critical Care Time Critical Care Time Critical Care Time: No Discharge Plan Discharge Clinical Impression: Lumbar radiculopathy, COVID-19 Patient Disposition: Home Condition: Stable Instructions: Acute Low Back Pain (ED), COVID-19 (Coronavirus Disease 2019) (ED), How to Recover from COVID-19 at Home (ED) Additional Instructions: Return to the ER if you experience chest pain, shortness of breath, weakness, numbness, bowel/bladder incontinence, or any other symptoms that are concerning to you Rest, use ice/heat, take anti-inflammatories (Aleve, Ibuprofen, Naproxen, etc) or Tylenol as needed for pain as well as muscle relaxer (Flexeril) as needed for pain. Muscle relaxers can make you drowsy, do not drive if you take this. Take steroid taper as prescribed Follow up with your primary care doctor and back doctor Patient Language: Kinyarwanda Prescriptions: New cyclobenzaprine 10 mg tablet 10 mg PO TID PRN (Reason: muscle spasm) Qty: 14 0RF methylprednisolone 4 mg tablets,dose pack See Rx Instructions .ROUTE .COMPLEX Qty: 21 0RF Rx Instructions: for 6 days No Action hydroxyzine HCl 25 mg tablet ergocalciferol (vitamin D2) 1,250 mcg (50,000 unit) capsule hydroxyzine HCl 10 mg tablet aripiprazole 10 mg tablet duloxetine 30 mg capsule,delayed release(DR/EC) PO Vraylar 3 mg capsule ibuprofen 600 mg tablet 600 mg PO Q6H PRN (Reason: pain) Qty: 30 0RF acetaminophen [Tylenol Extra Strength] 500 mg tablet 1,000 mg PO Q6H PRN (Reason: pain) Qty: 30 0RF naproxen 500 mg tablet 500 mg PO BID Qty: 20 0RF Follow-up/Referrals: UNKNOWN,DOCTOR [Primary Care Provider] Stand Alone Forms: Work/School Release IP
[2025-07-24 11:40] LABS: BEDSIDEPREGUCG Negative (Negative)
[2025-07-24] MEDS: LIDOCAINE 5% PATCH 1 PATCH TRANSDERM (11:44)
[2025-07-24] MEDS: ACETAMINOPHEN 500 MG TABLET 1000 MG PO (11:44)
[2025-07-24] MEDS: diazePAM INJ (*CRX) 10 MG/2 ML SYRINGE 5 MG IM (11:45)
[2025-07-24 11:55] VITALS: BP 137/69; PULSE 74; RESP 16; O2SAT 100
[2025-07-24 12:24] LABS: Strep Group A RT-PCR NOT DETECTED (Negative)
[2025-07-24 12:35] LABS: Influenza A QL RT-PCR Negative (Negative); Influenza B QL RT-PCR Negative (Negative); RSV RNA, RT-PCR Negative (Negative); SARS-CoV-2 RNA PCR Positive (Negative)
[2025-07-24 12:57] VITALS: BP 130/67; PULSE 78; RESP 17; O2SAT 98
== END 2025-07-24 12:58 | disposition home or self-care (01) ==
PROVIDERS: Emergency Provider Physician Assistant
DX: U07.1 COVID-19 (principal); M54.16 Radiculopathy, lumbar region; F17.200 Nicotine dependence, unspecified, uncomplicated
CPT/HCPCS: 72131; 81025; 87637; 87651; 96372; 99284; A9270; J3360